=== PATIENT | female | born 1965 | race Caucasian/White ===

== ENCOUNTER 2018-03-28 12:58 | Emergency (ER) | payer MEDICAID, SELFPAY ==
[2018-03-28 13:07] VITALS: BP 139/98; PULSE 94; RESP 16; TEMP 36.7; O2SAT 96
--- NOTE | 2018-03-28 13:38 | ED.GENADUL ---
Disposition Clinical Impression: Dental abscess Disposition: HOME Condition: Stable Instructions: Dental Abscess (ED) Additional Instructions: Continue to take [id number] ibuprofen as needed for pain control. You may take 600 mg every 6 hours as needed for discomfort. If you begin having significant severe swelling to your face, difficulty breathing, and ability to swallow you should return immediately to the emergency department otherwise you need to follow-up with your dentist later this week for reassessment. Even if improving you need to take your antibiotics until all the way gone. You may also use a probiotic to help prevent diarrhea and you should take this 2 hours after your antibiotic once daily. Prescriptions: Clindamycin [Cleocin] 450 mg PO Q8H #60 cap Referrals: Evelyn Coto NP [Primary Care Provider] - 1 week (If you are unable to obtain an appointment with your dentist in the next week please follow-up with your primary care provider for recheck of your infection.) Medical Decision Making - Medical Decision Making Patient presenting to the emergency department for report of dental pain for the last 24 hours and some subjective face swelling. Patient does have significant erythema and mild swelling without fluctuance surrounding tooth #7 and partial fracture of tooth #8. Patient has poor dentition throughout entire oral cavity with multiple missing teeth and broken teeth. Patient placed upon clindamycin for concern of dental abscess due to amoxicillin allergy and informed to follow-up with dentist in the next week which she states she should be able to obtain this appointment or her primary care for recheck. Patient given clear instructions of worsening symptoms and need to return if these occur. After discussion of diagnosis and plan of care with patient patient agreed and stated no further needs, questions, or concerns at this time. Patient was offered a dental block but stated that she did not like needles and refused dental block at this time. Patient encouraged to take ibuprofen 600 mg every 6 hours as needed for pain control. History of Present Illness - General Chief complaint: DentalOral Stated complaint: DENTAL Time Seen by Provider: 03/28/18 13:31 Source: patient, RN notes reviewed Mode of arrival: ambulatory Limitations: no limitations - History of Present Illness Initial comments: Patient reports yesterday she began having significant and severe dental pain. Patient states that she has had dental problems in the past and has a fractured tooth. This tooth fractured a while ago but in the past 24 hours she has noted to start having significant pain surrounding that area. Patient states multiple missing teeth and cavities. She also states she noted some swelling and this had to go on antibiotics in the past. Onset/Timin -: days(s) Location: mouth Severity scale (1-10): 10 Quality: aching Consistency: constant Improves with: none Worsens with: none Associated Symptoms: denies other symptoms Treatments Prior to Arrival: NSAID - Related Data Methadone Liquid [Dolophine Liquid] 36 mg PO DAILY 03/21/13 Psyllium Husk (with Sugar) [Metamucil Powder] 3 gm PO See Instructions #3 bottle 06/10/17 Duloxetine HCl 40 mg PO DAILY #90 tab-cap 08/17/17 Hydrochlorothiazide [Hydrodiuril] 25 mg PO DAILY #90 tab-cap 08/17/17 Levothyroxine [Levothroid] 50 mcg PO DAILY #90 tab-cap 09/11/17 Lisinopril 10 mg PO DAILY #90 tab-cap 11/11/17 Omeprazole 20 mg PO BID #180 tab-cap 01/27/18 Atorvastatin Calcium 20 mg PO DAILY #90 tab-cap 02/17/18 Bupropion HCl [Wellbutrin Xl] 300 mg PO DAILY #90 tab-cap 02/17/18 Clindamycin [Cleocin] 450 mg PO Q8H #60 cap 03/28/18 Allergies Allergy/AdvReac Type Severity Reaction Status Date / Time amoxicillin Allergy Intermediate Hives Unverified 02/17/18 13:34 venlafaxine AdvReac Unknown nausea Unverified 02/17/18 13:34 09/12/09 Review of Systems Constitutional: denies: chills, fever ENT: dental pain. denies: throat pain Respiratory: denies: cough, shortness of breath, stridor, wheezing Gastrointestinal: denies: abdominal pain, nausea, vomiting Neurological: denies: headache Past Medical History - Past Medical History Medical history: asthma Surgical history: bilateral tubal ligation Psychiatric history: anxiety, depression - Social History Smoking status: current everyday smoker Alcohol use: none Drug use: none Living Situation: lives with family General Exam - General Limitations: no limitations General appearance: alert, other (Some discomfort is noted as patient is holding her mouth) - Head Head exam: Present: atraumatic - Eye Eye exam: Present: normal apperance - Expanded ENT Exam No standard instances Mouth exam: Present: tongue normal. Absent: drooling, trismus, muffled voice, tongue elevation Teeth exam: Present: dental caries (Multiple throughout oral cavity), fractured tooth # (Multiple fractured deep teeth due to poor dentition tooth of concern is #8), dental tenderness # (7 8), gingival enlargement (Surrounding tooth 7, 8) Throat exam: normal inspection - Neck Neck exam: Present: full ROM. Absent: lymphadenopathy - Respiratory Respiratory exam: Present: normal lung sounds bilaterally. Absent: respiratory distress, wheezes, rales, rhonchi, stridor - Cardiovascular Cardiovascular Exam: Present: regular rate, normal rhythm, normal heart sounds. Absent: tachycardia, systolic murmur, diastolic murmur, rubs, clicks - Neurological Exam Neurological exam: Present: alert, oriented X3, normal gait. Absent: altered - Skin Skin exam: Present: warm, dry, normal color Course Vital Signs - 24 hr 03/28/18 13:07 Temperature 36.7 C Pulse 94 H Respiratory 16 Rate Blood Pressure 139/98 Pulse Oximetry 96
[2018-03-28] MEDS: Clindamycin 150 MG CAP 450 MG PO (13:43)
== END 2018-03-28 13:55 | disposition home or self-care (01) ==
PROVIDERS: Emergency Provider Emergency Medicine; PCP Nurse Practitioner Family
DX: K04.7 Periapical abscess without sinus (principal)
CPT/HCPCS: 99283

== ENCOUNTER 2018-05-26 15:02 | Outpatient (REF) | payer MEDICAID, SELFPAY ==
--- NOTE | 2018-05-26 14:00 | PAPFT_PTH ---
PATIENT: Zoë Garcia LOC: [facility] U#:[id number] AGE/SX: 53/F ROOM: RE05/26/[address]: Evelyn Coto APRN : 1965 BED: DIS: 05/26/2018 SPEC #: [id number] RECD: 05/27/18 13:11 STATUS: IKE REQ #: [id number] SAMARA: 05/26/18 14:[address]: Evelyn Coto DEPT: [facility] Cytology RECD BY: Deyanira Prabhakar Tissues: 1 - CX/ENDOCX FOR PAP SMEARS Procedures: PAP THIN PREP/UVM Screening HPV DNA PROBE Comments: [id number] (CHLAMYDIA/GC)
[2018-05-28 14:18] LABS: Chlamydia Result Negative; GC Result Negative; Specimen Description SEE COMMENTS
== END 2018-05-26 15:22 ==
LOC: LBN 15:02
PROVIDERS: PCP Nurse Practitioner Family; Visit Provider Nurse Practitioner Family
DX: Z12.4 Encounter for screening for malignant neoplasm of cervix (principal); Z11.51 Encounter for screening for human papillomavirus (HPV)
CPT/HCPCS: 87491; 87591; 88142; 87624

== ENCOUNTER 2018-06-07 08:40 | Outpatient (CLI) | payer MEDICAID, SELFPAY ==
[2018-06-07 10:23] LABS: Anion Gap 8.4 mmol/L (3-11); BUN 11 mg/dL (7-18); CO2 31.6 mmol/L (21.0-32.0); CREATININE 0.84 mg/dL (0.55-1.02); Calcium 9.1 mg/dL (8.5-10.1); Chloride 98 mmol/L (98-107); Glucose 172 mg/dL (70-100); Potassium 3.8 mmol/L (3.5-5.1); Sodium 138 mmol/L (136-145)
[2018-06-07 10:37] LABS: TSH (W/Ref FT4) 1.02 uIU/mL (0.358-3.74)
[2018-06-08 11:09] LABS: Hepatitis C Ab w Rflx HCV PCR Negative (NEGAT)
== END 2018-06-07 09:00 ==
PROVIDERS: PCP Nurse Practitioner Family; Visit Provider Nurse Practitioner Family
DX: Z11.59 Encounter for screening for other viral diseases (principal); E03.9 Hypothyroidism, unspecified; N28.9 Disorder of kidney and ureter, unspecified
CPT/HCPCS: 36415; 80048; 86803; 84443

== ENCOUNTER 2018-07-06 09:57 | Emergency (ER) | payer MEDICAID, SELFPAY ==
[2018-07-06] VITALS (15 sets, daily range): BP systolic 124–136; BP diastolic 67–84; PULSE 78–96; RESP 10–19; TEMP 36.5; O2SAT 93–99
--- NOTE | 2018-07-06 10:14 | W.ED.GENAD ---
Discharge Plan Disposition Patient Disposition: HOME Discharge Details Chief Complaint: Palpitatns Clinical Impression: Heart palpitations Primary Care Provider: Evelyn Coto ED Provider: Bryn Peña Home Meds and New Rx's Prescriptions: Continue hydrochlorothiazide 25 mg tablet 25 mg PO DAILY Qty: 90 RF: 3 varicella-zoster [id number]-AS01B (PF) [Shingrix (PF)] 50 mcg/0.5 mL suspension for reconstitution 50 mcg IM .COMPLEX Qty: 1 RF: 1 psyllium husk (with sugar) [Metamucil (with sugar)] 822 GM powder 3 gm PO See Instructions Qty: 3 RF: 3 levothyroxine 50 MCG tablet 50 mcg PO DAILY Qty: 90 RF: 3 lisinopril 10 MG tablet 10 mg PO DAILY Qty: 90 RF: 3 omeprazole 20 MG capsule,delayed release(DR/EC) 20 mg PO BID Qty: 180 RF: 3 Atorvastatin Calcium 20 MG tablet 20 mg PO DAILY Qty: 90 RF: 3 bupropion HCl [Wellbutrin XL] 300 MG tablet extended release 24 hr 300 mg PO DAILY Qty: 90 RF: 3 methadone 10 MG/ML concentrate 26 mg PO DAILY RF: 0 No Action duloxetine 40 mg capsule,delayed release(DR/EC) 40 mg PO DAILY Qty: 90 RF: 3 Discharge Instructions Instructions: Palpitations (ED) Additional Instructions: Please keep heart monitor (zio patch) on for 14 days and return as directed. Please contact your primary care physician to arrange follow-up. Return to the ER for any worsening or new concerning symptoms. Referrals: Evelyn Coto NP [Primary Care Provider] - Discharge Data Discharge Date/Time-TO BE ENTERED AT DEPARTURE: 07/06/18 12:12 Medical Decision Making 53-year-old female sent from primary care physician's office with concern for bradycardia, palpitations over the past 3 weeks with associated dizziness. Patient is hemodynamically stable here and without complaint at this time. ECG reviewed and interpreted by me: Sinus rhythm 91 bpm with frequent PVCs in a trigeminy, no STEMI. Patient does note that she is having palpitations at time of ECG. I suspect the bradycardia noted in the clinic was related to nonconducted PVCs. She has not had any bradycardia here on monitor. Screening labs were performed and no electrolyte abnormalities. TSH is normal. She is taking her levothyroxine as prescribed. Plan at this time is to have the patient follow-up with her primary care physician. I will place a CO patch hall monitor for home use. I spoke with cardiology on-call Dr. Morgan who is in agreement with the plan. Disposition decision was made weighing the risks and benefits of hospitalization versus outpatient treatment, the risk for further decompensation, and the patient's wishes. The patient was stable and requested discharge. Prior to discharge, my usual and customary return precautions were reviewed with the patient - this included follow-up instructions and reason to return to the emergency department if condition worsens, does not improve as expected, or other new concerns arise. HPI General Date/Time Provider Initiated Documentation: 07/06/18 10:14. Limitations to Documentation: no limitations. Information obtained by: patient. HPI Narrative: 53-year-old female sent from primary care physician's office with concern for bradycardia. Patient notes palpitations over the past 3 weeks with associated dizziness. Symptoms mild. No modifiers. No associated chest pain. No syncope. Related Data Home Medications Medication Instructions Recorded Confirmed methadone 26 mg PO DAILY 03/21/13 07/06/18 psyllium husk (with sugar) 3 gm PO See Instructions #3 bottle 06/10/17 07/06/18 [Metamucil (with sugar)] levothyroxine 50 mcg PO DAILY #90 tab-cap 09/11/17 07/06/18 lisinopril 10 mg PO DAILY #90 tab-cap 11/11/17 07/06/18 omeprazole 20 mg PO BID #180 tab-cap 01/27/18 07/06/18 bupropion HCl [Wellbutrin XL] 300 mg PO DAILY #90 tab-cap 02/17/18 07/06/18 hydrochlorothiazide 25 mg tablet 25 mg PO DAILY #90 tab-cap 05/26/18 07/06/18 varicella-zoster glycoE [id number]-AS01B 50 mcg IM .COMPLEX #1 each 05/26/18 07/06/18 adj(PF) 50 mcg/0.5 mL IM susp, kit duloxetine 40 mg capsule,delayed 40 mg PO DAILY #90 tab-cap 07/08/18 release Previous Rx's Medication Instructions Recorded psyllium husk (with sugar) 3 gm PO See Instructions #3 bottle 06/10/17 [Metamucil (with sugar)] levothyroxine 50 mcg PO DAILY #90 tab-cap 09/11/17 lisinopril 10 mg PO DAILY #90 tab-cap 11/11/17 omeprazole 20 mg PO BID #180 tab-cap 01/27/18 bupropion HCl [Wellbutrin XL] 300 mg PO DAILY #90 tab-cap 02/17/18 hydrochlorothiazide 25 mg tablet 25 mg PO DAILY #90 tab-cap 05/26/18 varicella-zoster glycoE [id number]-AS01B 50 mcg IM .COMPLEX #1 each 05/26/18 adj(PF) 50 mcg/0.5 mL IM susp, kit duloxetine 40 mg capsule,delayed 40 mg PO DAILY #90 tab-cap 07/08/18 release Allergies Allergy/AdvReac Type Severity Reaction Status Date / Time amoxicillin Allergy Intermediate Hives Unverified 07/06/18 10:06 venlafaxine AdvReac Unknown nausea Unverified 07/06/18 10:06 09/12/09 General Stated Complaint: Palpitatns HONG: 2 Review of Systems Review of Systems All systems reviewed & are unremarkable except as noted in HPI and below PFSH Leiomyoma of uterus, unspecified (Chronic) Upper airway resistance syndrome (Chronic 02/08/15) Tobacco use disorder (Chronic 02/08/15) Substance use disorder (Chronic) Periodic limb movement disorder (Chronic 09/07/15) Menorrhagia with regular cycle (Chronic 11/08/15) Major depressive disorder, recurrent (Chronic 06/03/17) IFG (impaired fasting glucose) (Chronic 02/16/18) Hypothyroidism, unspecified (Chronic 06/02/17) Hyperlipidemia, unspecified (Chronic 02/08/15) History of nephrolithiasis (Inactive 02/08/15) Gastroesophageal reflux disease (Chronic 06/10/17) Fatigue (Chronic 02/08/15) Essential hypertension (Chronic 08/17/17) Asthma (Chronic 02/08/15) Anxiety and depression Asthma HLD (hyperlipidemia) HTN (hypertension) History of substance abuse Hypothyroidism IFG (impaired fasting glucose) Kidney stones Tobacco use disorder Family History Mother Breast cancer Father Diabetes Mental disorder Grandfather Neoplasm Grandmother Diabetes Alcohol abuse Heart disease Sister Neoplasm Lung cancer Ligation of fallopian tube (08/25/12) Family History Mother Breast cancer Father Diabetes Mental disorder Grandfather Neoplasm Grandmother Diabetes Alcohol abuse Heart disease Sister Neoplasm Lung cancer Medical History Leiomyoma of uterus, unspecified (Chronic) Upper airway resistance syndrome (Chronic 02/08/15) Tobacco use disorder (Chronic 02/08/15) Substance use disorder (Chronic) Periodic limb movement disorder (Chronic 09/07/15) Menorrhagia with regular cycle (Chronic 11/08/15) Major depressive disorder, recurrent (Chronic 06/03/17) IFG (impaired fasting glucose) (Chronic 02/16/18) Hypothyroidism, unspecified (Chronic 06/02/17) Hyperlipidemia, unspecified (Chronic 02/08/15) History of nephrolithiasis (Inactive 02/08/15) Gastroesophageal reflux disease (Chronic 06/10/17) Fatigue (Chronic 02/08/15) Essential hypertension (Chronic 08/17/17) Asthma (Chronic 02/08/15) Anxiety and depression Asthma HLD (hyperlipidemia) HTN (hypertension) History of substance abuse Hypothyroidism IFG (impaired fasting glucose) Kidney stones Tobacco use disorder Social History Smoking/Tobacco Use Status: Current every day Surgical History Ligation of fallopian tube (08/25/12) Social History Smoking/Tobacco Use Status: Current every day Exam Const General: cooperative and no acute distress [facility] Head: normocephalic and atraumatic Mouth: moist mucous membranes Eyes Conjunctivae: normal conjunctivae Sclera: normal sclerae Neck Neck: trachea midline and supple Resp Auscultation: clear to auscultation bilaterally, no rales, no rhonchi and no wheezes Cardio Jugular venous pressure: no JVD Rate: regular rate and not tachycardic Rhythm: regular rhythm GI Palpation: soft, not firm, no guarding, no masses, not rigid and nontender Skin General skin exam: no rashes or lesions noted Neuro General: alert, awake, oriented x3 and tone normal Extrem General: no calf tenderness bilaterally and no edema Psych Appearance: grossly normal Mental Status: mental status grossly normal Speech and Movement: speech and movement normal Course Vital Signs Temperature 36.5 C 07/06/18 10:02 Pulse 94 H 07/06/18 10:02 Respiratory Rate 17 07/06/18 10:02 Temperature 36.5 C 07/06/18 10:02 Temperature Source Skin 07/06/18 10:02 Pulse 94 H 07/06/18 10:02 Respiratory Rate 17 07/06/18 10:02 Respiratory Effort Non-Labored 07/06/18 10:02 Pain Level 0 07/06/18 10:02
[2018-07-06 10:36] LABS: Abs Immature Grans 0.01 k/cumm (0.0-0.09); Absolute Basophil Count 0.05 k/cumm (0.0-0.2); Absolute Eosinophil Count 0.22 k/cumm (0.0-0.7); Absolute Lymphocyte Count 2.08 k/cumm (1.2-3.4); Absolute Monocyte Count 0.56 k/cumm (0.11-0.7); Absolute Neutrophil Count 4.52 k/cumm (1.2-6.7); Basophils % 0.7; HCT 47.8 % (36.0-46.0); HGB 15.8 g/dL (12.0-15.5); Immature Grans % 0.1; Mean Corp. HGB Concentration 33.1 g/dL (32.0-36.0); Mean Corpuscular Hemoglobin 29.4 pg (27.0-33.0); Mean Corpuscular Volume 88.8 fL (80-95); Mean Platelet Volume 8.5 fL (8.0-11.0); Monocytes % 7.5; Neutrophils % 60.7; Platelet Count 268 x1000/uL (130-400); RBC 5.38 m/cumm (4.00-5.20); RBC Distribution Width 13.3 % (11.7-14.6); White Blood Cell Count 7.44 k/cumm (4.4-10.8)
[2018-07-06 10:54] LABS: ALT 27 U/L (12-78); AST 19 U/L (15-37); Albumin 3.4 g/dL (3.4-5.0); Alkaline Phosphatase 92 U/L (46-116); Anion Gap 8.1 mmol/L (3-11); BUN 11 mg/dL (7-18); Bilirubin, Total 0.3 mg/dL (0.2-1.0); CO2 31.9 mmol/L (21.0-32.0); CREATININE 0.94 mg/dL (0.55-1.02); Calcium 9.1 mg/dL (8.5-10.1); Chloride 100 mmol/L (98-107); Glucose 121 mg/dL (70-100); Potassium 3.9 mmol/L (3.5-5.1); Sodium 140 mmol/L (136-145); Total Protein 7.6 g/dL (6.4-8.2); Troponin I < 0.02 ng/mL (0.00-0.06)
[2018-07-06 10:59] LABS: TSH (W/Ref FT4) 1.41 uIU/mL (0.358-3.74)
--- NOTE | 2018-07-06 11:39 | ED.GENADUL_ITS ---
Discharge Plan Disposition Patient Disposition: HOME Discharge Details Chief Complaint: Palpitatns Clinical Impression: Heart palpitations Primary Care Provider: Evelyn Coto ED Provider: Bryn Peña Home Meds and New Rx's Prescriptions: Continue hydrochlorothiazide 25 mg tablet 25 mg PO DAILY Qty: 90 RF: 3 varicella-zoster gE-AS01B (PF) [Shingrix (PF)] 50 mcg/0.5 mL suspension for reconstitution 50 mcg IM .COMPLEX Qty: 1 RF: 1 psyllium husk (with sugar) [Metamucil (with sugar)] 822 GM powder 3 gm PO See Instructions Qty: 3 RF: 3 levothyroxine 50 MCG tablet 50 mcg PO DAILY Qty: 90 RF: 3 lisinopril 10 MG tablet 10 mg PO DAILY Qty: 90 RF: 3 omeprazole 20 MG capsule,delayed release(DR/EC) 20 mg PO BID Qty: 180 RF: 3 Atorvastatin Calcium 20 MG tablet 20 mg PO DAILY Qty: 90 RF: 3 bupropion HCl [Wellbutrin XL] 300 MG tablet extended release 24 hr 300 mg PO DAILY Qty: 90 RF: 3 methadone 10 MG/ML concentrate 26 mg PO DAILY RF: 0 No Action duloxetine 40 mg capsule,delayed release(DR/EC) 40 mg PO DAILY Qty: 90 RF: 3 Discharge Instructions Instructions: Palpitations (ED) Additional Instructions: Please keep heart monitor (zio patch) on for 14 days and return as directed. Please contact your primary care physician to arrange follow-up. Return to the ER for any worsening or new concerning symptoms. Referrals: Evelyn Coto NP [Primary Care Provider] - Discharge Data Discharge Date/Time-TO BE ENTERED AT DEPARTURE: 07/06/18 12:12 Medical Decision Making 53-year-old female sent from primary care physician's office with concern for bradycardia, palpitations over the past 3 weeks with associated dizziness. Patient is hemodynamically stable here and without complaint at this time. ECG reviewed and interpreted by me: Sinus rhythm 91 bpm with frequent PVCs in a trigeminy, no STEMI. Patient does note that she is having palpitations at time of ECG. I suspect the bradycardia noted in the clinic was related to nonconducted PVCs. She has not had any bradycardia here on monitor. Screening labs were performed and no electrolyte abnormalities. TSH is normal. She is taking her levothyroxine as prescribed. Plan at this time is to have the patient follow-up with her primary care physician. I will place a CO patch vehicle monitor technician for home use. I spoke with cardiology on-call Dr. Morgan who is in agreement with the plan. Disposition decision was made weighing the risks and benefits of hospitalization versus outpatient treatment, the risk for further decompensation , and the patient's wishes. The patient was stable and requested discharge. Prior to discharge, my usual and customary return precautions were reviewed with the patient - this included follow-up instructions and reason to return to the emergency department if condition worsens, does not improve as expected, or other new concerns arise. HPI General Date/Time Provider Initiated Documentation: 07/06/18 10:14 . Limitations to Documentation: no limitations . Information obtained by: patient . HPI Narrative: 53-year-old female sent from primary care physician's office with concern for bradycardia. Patient notes palpitations over the past 3 weeks with associated dizziness. Symptoms mild. No modifiers. No associated chest pain. No syncope. Related Data Home Medications Medication Instructions Recorded Confirmed methadone 26 mg PO DAILY 03/21/13 07/06/18 psyllium husk (with sugar) 3 gm PO See Instructions #3 bottle 06/10/17 07/06/18 [Metamucil (with sugar)] levothyroxine 50 mcg PO DAILY #90 tab-cap 09/11/17 07/06/18 lisinopril 10 mg PO DAILY #90 tab-cap 11/11/17 07/06/18 omeprazole 20 mg PO BID #180 tab-cap 01/27/18 07/06/18 bupropion HCl [Wellbutrin XL] 300 mg PO DAILY #90 tab-cap 02/17/18 07/06/18 hydrochlorothiazide 25 mg tablet 25 mg PO DAILY #90 tab-cap 05/26/18 07/06/18 varicella-zoster glycoE [id number]-AS01B 50 mcg IM .COMPLEX #1 each 05/26/18 07/06/18 adj(PF) 50 mcg/0.5 mL IM susp, kit duloxetine 40 mg capsule,delayed 40 mg PO DAILY #90 tab-cap 07/08/18 release Previous Rx's Medication Instructions Recorded psyllium husk (with sugar) 3 gm PO See Instructions #3 bottle 06/10/17 [Metamucil (with sugar)] levothyroxine 50 mcg PO DAILY #90 tab-cap 09/11/17 lisinopril 10 mg PO DAILY #90 tab-cap 11/11/17 omeprazole 20 mg PO BID #180 tab-cap 01/27/18 bupropion HCl [Wellbutrin XL] 300 mg PO DAILY #90 tab-cap 02/17/18 hydrochlorothiazide 25 mg tablet 25 mg PO DAILY #90 tab-cap 05/26/18 varicella-zoster glycoE [id number]-AS01B 50 mcg IM .COMPLEX #1 each 05/26/18 adj(PF) 50 mcg/0.5 mL IM susp, kit duloxetine 40 mg capsule,delayed 40 mg PO DAILY #90 tab-cap 07/08/18 release Allergies Allergy/AdvReac Type Severity Reaction Status Date / Time amoxicillin Allergy Intermediate Hives Unverified 07/06/18 10:06 venlafaxine AdvReac Unknown nausea Unverified 07/06/18 10:06 09/12/09 General Stated Complaint: Palpitatns HONG: 2 Review of Systems Review of Systems All systems reviewed & are unremarkable except as noted in HPI and below PFSH Leiomyoma of uterus, unspecified (Chronic) Upper airway resistance syndrome (Chronic 02/08/15) Tobacco use disorder (Chronic 02/08/15) Substance use disorder (Chronic) Periodic limb movement disorder (Chronic 09/07/15) Menorrhagia with regular cycle (Chronic 11/08/15) Major depressive disorder, recurrent (Chronic 06/03/17) IFG (impaired fasting glucose) (Chronic 02/16/18) Hypothyroidism, unspecified (Chronic 06/02/17) Hyperlipidemia, unspecified (Chronic 02/08/15) History of nephrolithiasis (Inactive 02/08/15) Gastroesophageal reflux disease (Chronic 06/10/17) Fatigue (Chronic 02/08/15) Essential hypertension (Chronic 08/17/17) Asthma (Chronic 02/08/15) Anxiety and depression Asthma HLD (hyperlipidemia) HTN (hypertension) History of substance abuse Hypothyroidism IFG (impaired fasting glucose) Kidney stones Tobacco use disorder Family History Mother Breast cancer Father Diabetes Mental disorder Grandfather Neoplasm Grandmother Diabetes Alcohol abuse Heart disease Sister Neoplasm Lung cancer Ligation of fallopian tube (08/25/12) Family History Mother Breast cancer Father Diabetes Mental disorder Grandfather Neoplasm Grandmother Diabetes Alcohol abuse Heart disease Sister Neoplasm Lung cancer Medical History Leiomyoma of uterus, unspecified (Chronic) Upper airway resistance syndrome (Chronic 02/08/15) Tobacco use disorder (Chronic 02/08/15) Substance use disorder (Chronic) Periodic limb movement disorder (Chronic 09/07/15) Menorrhagia with regular cycle (Chronic 11/08/15) Major depressive disorder, recurrent (Chronic 06/03/17) IFG (impaired fasting glucose) (Chronic 02/16/18) Hypothyroidism, unspecified (Chronic 06/02/17) Hyperlipidemia, unspecified (Chronic 02/08/15) History of nephrolithiasis (Inactive 02/08/15) Gastroesophageal reflux disease (Chronic 06/10/17) Fatigue (Chronic 02/08/15) Essential hypertension (Chronic 08/17/17) Asthma (Chronic 02/08/15) Anxiety and depression Asthma HLD (hyperlipidemia) HTN (hypertension) History of substance abuse Hypothyroidism IFG (impaired fasting glucose) Kidney stones Tobacco use disorder Social History Smoking/Tobacco Use Status: Current every day Surgical History Ligation of fallopian tube (08/25/12) Social History Smoking/Tobacco Use Status: Current every day Exam Const General: cooperative and no acute distress [facility] Head: normocephalic and atraumatic Mouth: moist mucous membranes Eyes Conjunctivae: normal conjunctivae Sclera: normal sclerae Neck Neck: trachea midline and supple Resp Auscultation: clear to auscultation bilaterally, no rales, no rhonchi and no wheezes Cardio Jugular venous pressure: no JVD Rate: regular rate and not tachycardic Rhythm: regular rhythm GI Palpation: soft, not firm, no guarding, no masses, not rigid and nontender Skin General skin exam: no rashes or lesions noted Neuro General: alert, awake, oriented x3 and tone normal Extrem General: no calf tenderness bilaterally and no edema Psych Appearance: grossly normal Mental Status: mental status grossly normal Speech and Movement: speech and movement normal Course Vital Signs Temperature 36.5 C 07/06/18 10:02 Pulse 94 H 07/06/18 10:02 Respiratory Rate 17 07/06/18 10:02 Temperature 36.5 C 07/06/18 10:02 Temperature Source Skin 07/06/18 10:02 Pulse 94 H 07/06/18 10:02 Respiratory Rate 17 07/06/18 10:02 Respiratory Effort Non-Labored 07/06/18 10:02 Pain Level 0 07/06/18 10:02
--- NOTE | 2018-07-08 09:46 | W.ED.FU ---
I called to check on Zoë. She reports ongoing intermittent episodes of chest feeling funny with associated dizziness. No CP. She is wearing the heart monitor as prescribed. She is having to use the tape RT gave her to keep it on, while working. She will f/u with PCP, or walk in clinic once she is done with the monitor.
--- NOTE | 2018-07-26 17:12 | ZIOP_ITS ---
DATE OF DICTATION: July 26, 2018. MONITOR IN PLACE: 12 days 20 hours, July 06-July 19, 2018. Baseline rhythm sinus. Rare single PAC's. Four bursts of supraventricular tachycardia, longest 7-beat duration, fastest 15 2 bpm. Occasional single premature ventricular contractions, rare couplets. No ventricular tachycardia. No bradycardia/block. 16 triggered events occurring during sinus rhythm, +/- single premature ventricular contractions at 9 2-116 bpm. 9 symptomatic episodes. Lightheadedness, shortness of breath, fluttering and racing, skipped irregu lar beats, dizziness, all described during sinus rhythm +/- single premature ventricular contractions , 99-121 bpm. Average heart rate sinus 99 bpm, range 68 -148 bpm.
== END 2018-07-06 12:12 | disposition home or self-care (01) ==
PROVIDERS: Emergency Provider Student in an Organized Health Care Education/Training Program; PCP Nurse Practitioner Family
DX: R00.1 Bradycardia, unspecified (principal); I10 Essential (primary) hypertension
CPT/HCPCS: 36415; 80053; 93005; 93225; 99284; 83735; 84443; 84484; 85025; 93010

== ENCOUNTER 2018-08-27 13:54 | Emergency (ER) | payer MEDICAID, SELFPAY ==
[2018-08-27 14:20] VITALS: BP 141/81; PULSE 76; RESP 16; TEMP 36.5; O2SAT 97
[2018-08-27] MEDS: Acetaminophen 500 MG TAB 1000 MG PO (14:38)
[2018-08-27] MEDS: Benzocaine 20% Gel 30 GM JAR MM (14:39)
--- NOTE | 2018-08-27 15:33 | W.ED.GENAD ---
Discharge Plan Disposition Patient Disposition: HOME Condition: Stable Discharge Details Chief Complaint: DentalOral Clinical Impression: Dental abscess Primary Care Provider: Evelyn Coto ED Provider: Ryland Way Home Meds and New Rx's Prescriptions: New clindamycin HCl [Cleocin HCl] 150 mg capsule 450 mg PO TID 7 Days Qty: 63 RF: 0 Continued Shingrix (PF) 50 mcg/0.5 mL suspension for reconstitution 50 mcg IM .COMPLEX Qty: 1 RF: 1 Metamucil (with sugar) 822 GM powder 3 gm PO See Instructions Qty: 3 RF: 3 levothyroxine 50 MCG tablet 50 mcg PO DAILY Qty: 90 RF: 3 lisinopril 10 MG tablet 10 mg PO DAILY Qty: 90 RF: 3 omeprazole 20 MG capsule,delayed release(DR/EC) 20 mg PO BID Qty: 180 RF: 3 Atorvastatin Calcium 20 MG tablet 20 mg PO DAILY Qty: 90 RF: 3 bupropion HCl [Wellbutrin XL] 300 MG tablet extended release 24 hr 300 mg PO DAILY Qty: 90 RF: 3 duloxetine 40 mg capsule,delayed release(DR/EC) 40 mg PO DAILY Qty: 90 RF: 3 hydrochlorothiazide 25 mg tablet 25 mg PO DAILY Qty: 90 RF: 3 methadone 10 mg/mL concentrate 24 mg PO DAILY RF: 0 Discharge Instructions Instructions: Dental Abscess (ED) Additional Instructions: Please take antibiotic as prescribed and until fully gone. Keep your appointment with your dentist for follow-up on Thursday. Return to the emergency department for any new or significant worsening of symptoms. For pain control you may take 600 mg of ibuprofen along with 1000 mg of acetaminophen every 6 hours as needed for discomfort. To help with sleep you may take 1-2 tablets of Benadryl approximately 30 minutes before bedtime. Referrals: Evelyn Coto, MICKEY [Primary Care Provider] - (Keep your follow-up with your dentist as scheduled for next Thursday. If unable to keep that feel free to follow-up with your primary care provider for reassessment) Discharge Data Discharge Date/Time-TO BE ENTERED AT DEPARTURE: 08/27/18 15:58 Medical Decision Making Patient presenting to the emergency department chief complaint of dental pain. Patient states that patient has couple days she has had significant pain and discomfort to tooth #7 that seems to have come down more and hit her lower teeth every time she bites causing severe pain. Patient states throbbing type pain that is persistent. She has been taking NSAIDs with minimal relief. Patient does have follow-up appointment with dentist already scheduled for Thursday but due to worsening discomfort she was concerned of infection which she has had in the past. Physical exam does show partial fracture of tooth #8, overall poor dentition, erythema surrounding the base of tooth #7 and 8 with no palpable fluctuance induration or abscess. Minimal external swelling is noted. No signs of Patrick's angina, patient nontoxic, no neurological symptoms or other physical exam findings noted. Patient refused dental block at this time. manager staffing initiated pain protocol and gave patient acetaminophen and benzocaine topical which did provide patient with some relief while waiting for assessment. Patient was placed up on clindamycin due to penicillin type allergy which she states has helped in the past with no adverse diarrhea or GI upset. Patient encouraged to return for new or worsening symptoms otherwise keep her appointment with her dentist. HPI General Mode of arrival: ambulatory. Date/Time Provider Initiated Documentation: 08/27/18 14:20. Limitations to Documentation: no limitations. Information obtained by: patient. History of Present Illness 53 year old F presents to the emergency department with the chief complaint of Dental pain, described as severe and similar to prior episodes, with intensity rated at 10. Quality is described as sharp, and is localized to the mouth. Patient started experiencing this day(s) (2) and it has been constant. No relieving factors improve symptom(s), Patient notes no other symptoms.. Patient did receive the following treatments prior to arrival, NSAID Related Data Home Medications Medication Instructions Recorded Confirmed Metamucil (with sugar) 3 gm PO See Instructions #3 bottle 06/10/17 08/27/18 levothyroxine 50 mcg PO DAILY #90 tab-cap 09/11/17 08/27/18 lisinopril 10 mg PO DAILY #90 tab-cap 11/11/17 08/27/18 omeprazole 20 mg PO BID #180 tab-cap 01/27/18 08/27/18 bupropion HCl [Wellbutrin XL] 300 mg PO DAILY #90 tab-cap 02/17/18 08/27/18 varicella-zoster glycoE [id number] 50 mcg IM .COMPLEX #1 each 05/26/18 08/16/18 adj(PF) 50 mcg/0.5 mL IM susp, kit duloxetine 40 mg capsule,delayed 40 mg PO DAILY #90 tab-cap 07/08/18 08/27/18 release methadone 10 mg/mL oral concentrate 24 mg PO DAILY ml 08/16/18 08/27/18 hydrochlorothiazide 25 mg tablet 25 mg PO DAILY #90 tab-cap 08/25/18 08/27/18 clindamycin HCl [Cleocin HCl] 450 mg PO TID 7 Days #63 cap 08/27/18 Previous Rx's Medication Instructions Recorded Metamucil (with sugar) 3 gm PO See Instructions #3 bottle 06/10/17 levothyroxine 50 mcg PO DAILY #90 tab-cap 09/11/17 lisinopril 10 mg PO DAILY #90 tab-cap 11/11/17 omeprazole 20 mg PO BID #180 tab-cap 01/27/18 bupropion HCl [Wellbutrin XL] 300 mg PO DAILY #90 tab-cap 02/17/18 varicella-zoster glycoE [id number] 50 mcg IM .COMPLEX #1 each 05/26/18 adj(PF) 50 mcg/0.5 mL IM susp, kit duloxetine 40 mg capsule,delayed 40 mg PO DAILY #90 tab-cap 07/08/18 release hydrochlorothiazide 25 mg tablet 25 mg PO DAILY #90 tab-cap 08/25/18 clindamycin HCl [Cleocin HCl] 450 mg PO TID 7 Days #63 cap 08/27/18 Allergies Allergy/AdvReac Type Severity Reaction Status Date / Time amoxicillin Allergy Intermediate Hives Unverified 08/27/18 14:25 venlafaxine AdvReac Unknown nausea Unverified 08/27/18 14:25 09/12/09 General Stated Complaint: DentalOral HONG: 4 Review of Systems Constitutional Denies chills and Denies fever(s) ENT Reports as per HPI, Denies change in voice, Reports dental pain, Denies dysphagia, Denies throat swelling and Denies tongue swelling Cardiovascular Denies chest pain and Denies dyspnea Respiratory Denies dyspnea Gastrointestinal Denies dysphagia Integumentary/Breasts Denies rash Allergic/Immunologic Denies throat swelling and Denies tongue swelling [facility] Medical History Leiomyoma of uterus, unspecified (Chronic) Upper airway resistance syndrome (Chronic 02/08/15) Tobacco use disorder (Chronic 02/08/15) Substance use disorder (Chronic) Periodic limb movement disorder (Chronic 09/07/15) Menorrhagia with regular cycle (Chronic 11/08/15) Major depressive disorder, recurrent (Chronic 06/03/17) IFG (impaired fasting glucose) (Chronic 02/16/18) Hypothyroidism, unspecified (Chronic 06/02/17) Hyperlipidemia, unspecified (Chronic 02/08/15) History of nephrolithiasis (Inactive 02/08/15) Gastroesophageal reflux disease (Chronic 06/10/17) Fatigue (Chronic 02/08/15) Essential hypertension (Chronic 08/17/17) Asthma (Chronic 02/08/15) Anxiety and depression Asthma HLD (hyperlipidemia) HTN (hypertension) History of substance abuse Hypothyroidism IFG (impaired fasting glucose) Kidney stones Tobacco use disorder Surgical History Ligation of fallopian tube (08/25/12) Family History Mother Breast cancer Father Diabetes Mental disorder Grandfather Neoplasm Grandmother Diabetes Alcohol abuse Heart disease Sister Neoplasm Lung cancer Social History number of children: 2 current occupational status: employed current occupation: House cleaning pets and animals: No Hx Recent Travel: No Smoking/Tobacco Use Status: Current every day alcohol intake: former substance use type: does not use seatbelt use: always helmet use: Yes Exam Const General: cooperative Orientation: alert, awake and oriented x3 Limitations: mental status not altered [facility] Head: normal to inspection, normocephalic and atraumatic Ears: hearing grossly normal bilaterally, normal mastoids bilaterally and no periauricular adenopathy General nose exam: external nose normal Mouth: oropharynx normal, no drooling, no muffled voice, normal tongue and no trismus Teeth and gingiva: abnormal gingiva (Erythema surrounding tooth #7 and 8 along with tenderness to these teeth), caries, poor dentition and other (Partially fractured tooth 8 with erythema surrounding the base of the tooth) Throat: posterior oropharynx normal, tonsils normal and uvula midline Eyes General: appearance normal, both eyes and all related structures Pupils: PERRL Neck Neck: normal visual inspection, full ROM, no lymphadenopathy, no meningeal signs, trachea midline, supple, no anterior neck swelling and no midline deformity Resp Effort & Inspection: normal respiratory effort and able to speak in complete sentences Course Vital Signs Temperature 36.5 C 08/27/18 14:20 Pulse 76 08/27/18 14:20 Respiratory Rate 16 08/27/18 14:20 Blood Pressure 141/81 H 08/27/18 14:20 Pulse Oximetry 97 08/27/18 14:20 Temperature 36.5 C 08/27/18 14:20 Temperature Source Temporal Artery Scan 08/27/18 14:20 Pulse 76 08/27/18 14:20 Respiratory Rate 16 08/27/18 14:20 Respiratory Effort Non-Labored 08/27/18 14:24 Blood Pressure 141/81 H 08/27/18 14:20 Blood Pressure Position Sitting 08/27/18 14:20 Pulse Oximetry 97 08/27/18 14:20 Oxygen Delivery Method Room Air 08/27/18 14:20 Oxygen Flow Rate 0 08/27/18 14:20 Pain Level 10 08/27/18 14:38
--- NOTE | 2018-08-27 15:37 | ED.GENADUL_ITS ---
Discharge Plan Disposition Patient Disposition: HOME Condition: Stable Discharge Details Chief Complaint: DentalOral Clinical Impression: Dental abscess Primary Care Provider: Eevlyn Coto ED Provider: Ryland Way Home Meds and New Rx's Prescriptions: New clindamycin HCl [Cleocin HCl] 150 mg capsule 450 mg PO TID 7 Days Qty: 63 RF: 0 Continued Shingrix (PF) 50 mcg/0.5 mL suspension for reconstitution 50 mcg IM .COMPLEX Qty: 1 RF: 1 Metamucil (with sugar) 822 GM powder 3 gm PO See Instructions Qty: 3 RF: 3 levothyroxine 50 MCG tablet 50 mcg PO DAILY Qty: 90 RF: 3 lisinopril 10 MG tablet 10 mg PO DAILY Qty: 90 RF: 3 omeprazole 20 MG capsule,delayed release(DR/EC) 20 mg PO BID Qty: 180 RF: 3 Atorvastatin Calcium 20 MG tablet 20 mg PO DAILY Qty: 90 RF: 3 bupropion HCl [Wellbutrin XL] 300 MG tablet extended release 24 hr 300 mg PO DAILY Qty: 90 RF: 3 duloxetine 40 mg capsule,delayed release(DR/EC) 40 mg PO DAILY Qty: 90 RF: 3 hydrochlorothiazide 25 mg tablet 25 mg PO DAILY Qty: 90 RF: 3 methadone 10 mg/mL concentrate 24 mg PO DAILY RF: 0 Discharge Instructions Instructions: Dental Abscess (ED) Additional Instructions: Please take antibiotic as prescribed and until fully gone. Keep your appointment with your dentist for follow-up on Thursday. Return to the emergency department for any new or significant worsening of symptoms. For pain control you may take 600 mg of ibuprofen along with 1000 mg of acetaminophen every 6 hours as needed for discomfort. To help with sleep you may take 1-2 tablets of Benadryl approximately 30 minutes before bedtime. Referrals: Evelyn Coto, MICKEY [Primary Care Provider] - (Keep your follow-up with your dentist as scheduled for next Thursday. If unable to keep that feel free to follow-up with your primary care provider for reassessment) Discharge Data Discharge Date/Time-TO BE ENTERED AT DEPARTURE: 08/27/18 15:58 Medical Decision Making Patient presenting to the emergency department chief complaint of dental pain. Patient states that patient has couple days she has had significant pain and discomfort to tooth #7 that seems to have come down more and hit her lower teeth every time she bites causing severe pain. Patient states throbbing type pain that is persistent. She has been taking NSAIDs with minimal relief. Patient does have follow-up appointment with dentist already scheduled for Thursday but due to worsening discomfort she was concerned of infection which she has had in the past. Physical exam does show partial fracture of tooth #8, overall poor dentition, erythema surrounding the base of tooth #7 and 8 with no palpable fluctuance induration or abscess. Minimal external swelling is noted. No signs of Patrick's angina, patient nontoxic, no neurological symptoms or other physical exam findings noted. Patient refused dental block at this time. staff pharmacist initiated pain protocol and gave patient acetaminophen and benzocaine topical which did provide patient with some relief while waiting for assessment. Patient was placed up on clindamycin due to penicillin type allergy which she states has helped in the past with no adverse diarrhea or GI upset. Patient encouraged to return for new or worsening symptoms otherwise keep her appointment with her dentist. HPI General Mode of arrival: ambulatory . Date/Time Provider Initiated Documentation: 08/27/18 14:20 . Limitations to Documentation: no limitations . Information obtained by: patient . History of Present Illness 53 year old F presents to the emergency department with the chief complaint of Dental pain, described as severe and similar to prior episodes, with intensity rated at 10. Quality is described as sharp, and is localized to the mouth. Patient started experiencing this day(s) (2) and it has been constant. No relieving factors improve symptom(s), Patient notes no other symptoms.. Patient did receive the following treatments prior to arrival, NSAID Related Data Home Medications Medication Instructions Recorded Confirmed Metamucil (with sugar) 3 gm PO See Instructions #3 bottle 06/10/17 08/27/18 levothyroxine 50 mcg PO DAILY #90 tab-cap 09/11/17 08/27/18 lisinopril 10 mg PO DAILY #90 tab-cap 11/11/17 08/27/18 omeprazole 20 mg PO BID #180 tab-cap 01/27/18 08/27/18 bupropion HCl [Wellbutrin XL] 300 mg PO DAILY #90 tab-cap 02/17/18 08/27/18 varicella-zoster glycoE [id number]-AS01B 50 mcg IM .COMPLEX #1 each 05/26/18 08/16/18 adj(PF) 50 mcg/0.5 mL IM susp, kit duloxetine 40 mg capsule,delayed 40 mg PO DAILY #90 tab-cap 07/08/18 08/27/18 release methadone 10 mg/mL oral concentrate 24 mg PO DAILY ml 08/16/18 08/27/18 hydrochlorothiazide 25 mg tablet 25 mg PO DAILY #90 tab-cap 08/25/18 08/27/18 clindamycin HCl [Cleocin HCl] 450 mg PO TID 7 Days #63 cap 08/27/18 Previous Rx's Medication Instructions Recorded Metamucil (with sugar) 3 gm PO See Instructions #3 bottle 06/10/17 levothyroxine 50 mcg PO DAILY #90 tab-cap 09/11/17 lisinopril 10 mg PO DAILY #90 tab-cap 11/11/17 omeprazole 20 mg PO BID #180 tab-cap 01/27/18 bupropion HCl [Wellbutrin XL] 300 mg PO DAILY #90 tab-cap 02/17/18 varicella-zoster glycoE [id number]-AS01B 50 mcg IM .COMPLEX #1 each 05/26/18 adj(PF) 50 mcg/0.5 mL IM susp, kit duloxetine 40 mg capsule,delayed 40 mg PO DAILY #90 tab-cap 07/08/18 release hydrochlorothiazide 25 mg tablet 25 mg PO DAILY #90 tab-cap 08/25/18 clindamycin HCl [Cleocin HCl] 450 mg PO TID 7 Days #63 cap 08/27/18 Allergies Allergy/AdvReac Type Severity Reaction Status Date / Time amoxicillin Allergy Intermediate Hives Unverified 08/27/18 14:25 venlafaxine AdvReac Unknown nausea Unverified 08/27/18 14:25 09/12/09 General Stated Complaint: DentalOral HONG: 4 Review of Systems Constitutional Denies chills and Denies fever(s) ENT Reports as per HPI, Denies change in voice, Reports dental pain, Denies dysphagia, Denies throat swelling and Denies tongue swelling Cardiovascular Denies chest pain and Denies dyspnea Respiratory Denies dyspnea Gastrointestinal Denies dysphagia Integumentary/Breasts Denies rash Allergic/Immunologic Denies throat swelling and Denies tongue swelling [facility] Medical History Leiomyoma of uterus, unspecified (Chronic) Upper airway resistance syndrome (Chronic 02/08/15) Tobacco use disorder (Chronic 02/08/15) Substance use disorder (Chronic) Periodic limb movement disorder (Chronic 09/07/15) Menorrhagia with regular cycle (Chronic 11/08/15) Major depressive disorder, recurrent (Chronic 06/03/17) IFG (impaired fasting glucose) (Chronic 02/16/18) Hypothyroidism, unspecified (Chronic 06/02/17) Hyperlipidemia, unspecified (Chronic 02/08/15) History of nephrolithiasis (Inactive 02/08/15) Gastroesophageal reflux disease (Chronic 06/10/17) Fatigue (Chronic 02/08/15) Essential hypertension (Chronic 08/17/17) Asthma (Chronic 02/08/15) Anxiety and depression Asthma HLD (hyperlipidemia) HTN (hypertension) History of substance abuse Hypothyroidism IFG (impaired fasting glucose) Kidney stones Tobacco use disorder Surgical History Ligation of fallopian tube (08/25/12) Family History Mother Breast cancer Father Diabetes Mental disorder Grandfather Neoplasm Grandmother Diabetes Alcohol abuse Heart disease Sister Neoplasm Lung cancer Social History number of children: 2 current occupational status: employed current occupation: House cleaning pets and animals: No Hx Recent Travel: No Smoking/Tobacco Use Status: Current every day alcohol intake: former substance use type: does not use seatbelt use: always helmet use: Yes Exam Const General: cooperative Orientation: alert, awake and oriented x3 Limitations: mental status not altered [facility] Head: normal to inspection, normocephalic and atraumatic Ears: hearing grossly normal bilaterally, normal mastoids bilaterally and no periauricular adenopathy General nose exam: external nose normal Mouth: oropharynx normal, no drooling, no muffled voice, normal tongue and no trismus Teeth and gingiva: abnormal gingiva (Erythema surrounding tooth #7 and 8 along with tenderness to these teeth), caries, poor dentition and other (Partially fractured tooth 8 with erythema surrounding the base of the tooth) Throat: posterior oropharynx normal, tonsils normal and uvula midline Eyes General: appearance normal, both eyes and all related structures Pupils: PERRL Neck Neck: normal visual inspection, full ROM, no lymphadenopathy, no meningeal signs, trachea midline, supple, no anterior neck swelling and no midline deformity Resp Effort & Inspection: normal respiratory effort and able to speak in complete sentences Course Vital Signs Temperature 36.5 C 08/27/18 14:20 Pulse 76 08/27/18 14:20 Respiratory Rate 16 08/27/18 14:20 Blood Pressure 141/81 H 08/27/18 14:20 Pulse Oximetry 97 08/27/18 14:20 Temperature 36.5 C 08/27/18 14:20 Temperature Source Temporal Artery Scan 08/27/18 14:20 Pulse 76 08/27/18 14:20 Respiratory Rate 16 08/27/18 14:20 Respiratory Effort Non-Labored 08/27/18 14:24 Blood Pressure 141/81 H 08/27/18 14:20 Blood Pressure Position Sitting 08/27/18 14:20 Pulse Oximetry 97 08/27/18 14:20 Oxygen Delivery Method Room Air 08/27/18 14:20 Oxygen Flow Rate 0 08/27/18 14:20 Pain Level 10 08/27/18 14:38
[2018-08-27] MEDS: Clindamycin 150 MG CAP 450 MG PO (15:43)
[2018-08-27 15:44] VITALS: BP 136/70; PULSE 72; RESP 16; TEMP 36.6; O2SAT 97
== END 2018-08-27 15:58 | disposition home or self-care (01) ==
PROVIDERS: Emergency Provider Nurse Practitioner Family; PCP Nurse Practitioner Family
DX: K04.7 Periapical abscess without sinus (principal); F17.210 Nicotine dependence, cigarettes, uncomplicated; I10 Essential (primary) hypertension
CPT/HCPCS: 99283

== ENCOUNTER 2019-03-14 07:00 | Outpatient (REF) | payer MEDICAID, SELFPAY ==
[2019-03-18 15:02] LABS: Fecal Immunochemical Test Negative (Negative)
== END 2019-03-14 07:20 ==
LOC: LBN 07:00
PROVIDERS: PCP Nurse Practitioner Family; Visit Provider Nurse Practitioner Family
DX: Z12.11 Encounter for screening for malignant neoplasm of colon (principal)
CPT/HCPCS: 82274

== ENCOUNTER 2019-03-21 00:44 | Outpatient (CLI) | payer MEDICAID, SELFPAY ==
--- NOTE | 2019-03-21 15:15 | DI.MAMMO_ITS ---
SYMPTOM/DIAGNOSIS: SCREENING Z12.31 MAMMOGRAM: 03/21 Mammograms were interpreted according to the usual protocol including computer analysis with CAD system, tomosynthesis and C view imaging. The breasts are of moderate density with fairly symmetrical distribution of fibroglandular tissue. No dominant mass or clumped microcalcifications identified in either breast. The current examination is compared with previous examination of 09/2015 and there has been no gross interval change in appearance since that time. CONCLUSION: No specific evidence of malignancy at this time. Routine screening examinations are suggested at yearly intervals due to the family history of breast carcinoma. Category 1 breast density category B. MQSA ASSESSMENT OF FINDINGS: Negative. Category 1. Patient will receive a letter notifying them of these results. BI-RADS category B. There are scattered areas of fibroglandular density.
== END 2019-03-21 01:04 ==
PROVIDERS: PCP Nurse Practitioner Family; Visit Provider Nurse Practitioner Family
DX: Z12.31 Encounter for screening mammogram for malignant neoplasm of breast (principal)
CPT/HCPCS: 77063; 77067

== ENCOUNTER 2019-09-20 02:11 | Outpatient (CLI) | payer MEDICAID, SELFPAY ==
[2019-09-20 08:59] LABS: BUN 13 mg/dL (7-18); CREATININE 0.87 mg/dL (0.55-1.02); Calcium 9.3 mg/dL (8.5-10.1); Calculated LDL 114 mg/dL (<100); Chloride 100 mmol/L (98-107); Cholesterol 229 mg/dL (<200); Glucose 142 mg/dL (74-106); HDL Cholesterol 44 mg/dL (40-60); Potassium 4.3 mmol/L (3.5-5.1); Sodium 141 mmol/L (136-145); TSH (W/Ref FT4) 2.21 uIU/mL (0.36-3.74); Triglyceride 355 mg/dL (<150)
== END 2019-09-20 02:31 ==
PROVIDERS: PCP Nurse Practitioner Family; Visit Provider Nurse Practitioner Family
DX: I10 Essential (primary) hypertension (principal); E03.9 Hypothyroidism, unspecified; E78.5 Hyperlipidemia, unspecified
CPT/HCPCS: 36415; 80048; 80061; 84443

== ENCOUNTER 2020-02-23 10:55 | Observation (INO) | payer MEDICAID, SELFPAY ==
[2020-02-23] VITALS (27 sets, daily range): BP systolic 81–189; BP diastolic 45–112; PULSE 94–111; RESP 16–23; TEMP 36.2–37.9; O2SAT 73–100
[2020-02-23] MEDS: Normal Saline Flush 10 ML SYR IVP (11:15)
[2020-02-23] MEDS: Normal Saline 1,000 ML 1000 ML IV (11:15)
[2020-02-23] MEDS: Ondansetron 4 MG/2 ML VIAL IVP (11:20)
[2020-02-23 11:27] LABS: Lactate 1.5 mmol/L (0.6-1.4)
[2020-02-23 11:28] LABS: Abs Immature Grans 0.05 k/cumm (0.0-0.09); Absolute Basophil Count 0.03 k/cumm (0.0-0.2); Absolute Eosinophil Count 0.02 k/cumm (0.0-0.7); Absolute Lymphocyte Count 1.38 k/cumm (1.2-3.4); Absolute Monocyte Count 0.36 k/cumm (0.11-0.7); Absolute Neutrophil Count 15.43 k/cumm (1.2-6.7); Basophils % 0.2; Eosinophils % 0.1; HCT 45.5 % (36.0-46.0); HGB 15.4 g/dL (12.0-15.5); Immature Grans % 0.3 %; Mean Corp. HGB Concentration 33.8 g/dL (32.0-36.0); Mean Corpuscular Hemoglobin 30.1 pg (27.0-33.0); Mean Platelet Volume 8.3 fL (8.0-11.0); Monocytes % 2.1; Neutrophils % 89.3; Platelet Count 326 x1000/uL (130-400); RBC 5.11 m/cumm (4.00-5.20); White Blood Cell Count 17.28 k/cumm (4.4-10.8)
[2020-02-23 11:47] LABS: ALT 41 U/L (14-59); AST 22 U/L (15-37); Albumin 4.1 g/dL (3.4-5.0); Alkaline Phosphatase 93 U/L (46-116); Anion Gap 9.1 mmol/L (3-11); BUN 16 mg/dL (7-18); Bilirubin, Total 0.4 mg/dL (0.2-1.0); CO2 29.9 mmol/L (21.0-32.0); CREATININE 0.96 mg/dL (0.55-1.02); Calcium 9.8 mg/dL (8.5-10.1); Chloride 100 mmol/L (98-107); Glucose 168 mg/dL (74-106); Lipase 69 U/L (73-393); Potassium 3.7 mmol/L (3.5-5.1); Sodium 139 mmol/L (136-145); Total Protein 8.3 g/dL (6.4-8.2)
[2020-02-23] MEDS: Metoclopramide 10 MG/2 ML VIAL IVP (12:22)
[2020-02-23 12:24] LABS: Bilirubin Negative (Negative); Blood Trace-intact (Negative); Clarity Clear (Clear); Glucose Negative (Negative); Ketones Negative (Negative); Leukocyte Esterase Negative (Negative); Nitrite Negative (Negative); Specific Gravity >= 1.030 (1.005-1.025); Urobilinogen 0.2 EU/dL (Up TO 0.2); pH 5.5 (5-8)
[2020-02-23] MEDS: Normal Saline - Diluent 50 ML VIAL IV (12:34)
[2020-02-23 12:36] LABS: Bacteria Moderate HPF (Negative); Casts Negative LPF (Negative); Crystals Negative HPF (Negative); Epithelial Cells Moderate HPF (Negative); Mucus Moderate (Negative); RBC 0-2 HPF (0-2); WBC 0-2 HPF (0-5)
[2020-02-23 12:37] LABS: C & S Indicated? No
--- NOTE | 2020-02-23 13:13 | DI.CT_ITS ---
EXAM: CT ABDOMEN PELVIS W CLINICAL HISTORY: Pain, nausea, vomiting, leukocytosis, elevated lac TECHNIQUE: COMPARISON: CT ABD/PELVIS WO W CONTRAST from 09/21/2015 FINDINGS: CT examination of the abdomen and pelvis was performed with intravenous infusion 100 cc of Omnipaque 350. Images obtained through the lung bases are unremarkable. Note is made of coronary artery calcificati on. There is decreased hepatic attenuation consistent with hepatic steatosis. No biliary dilatation. No focal hepatic lesion. Gallbladder is CT normal. Spleen is unremarkable in appearance. Pancreas ap pears normal. Adrenals and kidneys are unremarkable in appearance, no urinary tract calcification or obstruction. Abdominal aorta is of normal diameter and major visceral branches appear intact. No significant abdominal wall hernia. No abdominal or pelvic adenopathy. Appendix is dilated at about 14 millimeters. There is periappendiceal fat edema and minimal free flu id in the right pericolic gutter. Findings are consistent with acute uncomplicated appendicitis. No other focal bowel pathology identified. Orderly structures appear intact IMPRESSION: Appearance of the appendix is consistent with acute appendicitis, no evidence of perforation or absce ss formation. Incidental note is made of hepatic steatosis
--- NOTE | 2020-02-23 13:40 | W.ED.GENAD ---
Discharge Plan Disposition Patient Disposition: OTHER Condition: Serious Discharge Details Chief Complaint: Nausea/Vomit/Diar Clinical Impression: Acute appendicitis Attending Provider: Sweta Anders Primary Care Provider: Evelyn Coto ED Provider: Paco Fitzpatrick Medical Decision Making 54-year-old female with history of hypertension, GERD, renal stone, hyperlipidemia, hypothyroidism, depression, substance abuse, current smoker, diabetes, presents with abdominal pain, nausea, vomiting, diarrhea that began around 6:00 this morning. She is actively dry heaving and appears uncomfortable. Will obtain IV access, give IV Zofran, IV fluid and laboratory values. Differential includes but not excluded to gastroenteritis, biliary colic, appendicitis, ileus, small bowel obstruction, gastritis, colitis, etc. Patient continues to vomit, given IV Reglan of note, heart rate and blood pressure are trending downward Laboratory values reveal a white count of 17.28, lactate of 1.5, creatinine 0.96, GFR greater than 60. Urinalysis with trace blood but negative for signs of infection. Given the lactate and leukocytosis will obtain CT. Patient continues with nausea, given 12.[address] findings with radiology, uncomplicated appendicitis Call placed to surgery. Given her penicillin allergy of hives and difficulty breathing, will await their recommendations for antibiotic therapy. Case was discussed with Dr. Anders who will accept admission of the patient and recommends 750 IV Levaquin. HPI General Mode of arrival: ambulatory. Date/Time Provider Initiated Documentation: 02/23/20 11:02. Limitations to Documentation: no limitations. Information obtained by: patient. HPI Narrative: This is a 54-year-old female with significant past nuchal history that includes current smoking, diabetes type 2, substance abuse disorder, depression, hypothyroidism, hyperlipidemia, GERD, hypertension, asthma, presenting to the ER today reporting that around 6 AM this morning she began with generalized abdominal pain, crampy and moderate in nature associated with nausea, vomiting, diarrhea, chills. She reports a chronic cough but really no different than her baseline. She denies recent travel, sick contact, bad food exposure. She says she ate normally yesterday went to bed asymptomatic. She denies any fever, sore throat, headache, chest pain, back pain, dysuria, hematuria. No blood in her vomit or stools. No black tarry stools. She denies any abdominal surgeries whatsoever Related Data Home Medications Medication Instructions Recorded Confirmed varicella-zoster gE-AS01B (PF) 50 50 mcg IM .COMPLEX #1 each 05/26/18 02/23/20 mcg/0.5 mL IM susp, kit duloxetine 60 mg capsule,delayed 60 mg PO DAILY #90 tab-cap 03/04/19 02/23/20 release gabapentin 300 mg capsule 300 mg PO HS #90 tab-cap 03/04/19 02/23/20 aspirin 81 mg tablet,delayed 81 mg PO DAILY #90 tab-cap 05/27/19 02/23/20 release blood sugar diagnostic #100 each 05/27/19 02/23/20 blood-glucose meter #1 each 05/27/19 02/23/20 lancets #100 each 05/27/19 02/23/20 lisinopril 10 mg tablet 10 mg PO DAILY #90 tab-cap 11/07/19 02/23/20 albuterol sulfate 90 mcg/actuation 1 - 2 puff IH Q4H PRN #1 device 11/25/19 02/23/20 aerosol inhaler atorvastatin 40 mg tablet 40 mg PO DAILY #90 tab-cap 11/25/19 02/23/20 bupropion HCl 150 mg 24 hr tablet, 450 mg PO QAM #135 tab-cap 12/23/19 02/23/20 extended release levothyroxine 50 mcg tablet 50 mcg PO DAILY #90 tab-cap 12/23/19 02/23/20 omeprazole 20 mg capsule,delayed 20 mg PO DAILY #90 tab-cap 01/30/20 02/23/20 release metformin 1,000 mg tablet 500 mg PO DAILY #90 tab-cap 02/02/20 02/23/20 methadone 10 mg/mL oral concentrate 5 mg PO DAILY ml 02/02/20 02/23/20 hydrochlorothiazide 25 mg tablet 25 mg PO DAILY #90 tab-cap 02/13/20 02/23/20 Previous Rx's Medication Instructions Recorded varicella-zoster gE-AS01B (PF) 50 50 mcg IM .COMPLEX #1 each 05/26/18 mcg/0.5 mL IM susp, kit duloxetine 60 mg capsule,delayed 60 mg PO DAILY #90 tab-cap 03/04/19 release gabapentin 300 mg capsule 300 mg PO HS #90 tab-cap 03/04/19 aspirin 81 mg tablet,delayed 81 mg PO DAILY #90 tab-cap 05/27/19 release blood sugar diagnostic #100 each 05/27/19 blood-glucose meter #1 each 05/27/19 lancets #100 each 05/27/19 lisinopril 10 mg tablet 10 mg PO DAILY #90 tab-cap 11/07/19 albuterol sulfate 90 mcg/actuation 1 - 2 puff IH Q4H PRN #1 device 11/25/19 aerosol inhaler atorvastatin 40 mg tablet 40 mg PO DAILY #90 tab-cap 11/25/19 bupropion HCl 150 mg 24 hr tablet, 450 mg PO QAM #135 tab-cap 12/23/19 extended release levothyroxine 50 mcg tablet 50 mcg PO DAILY #90 tab-cap 12/23/19 omeprazole 20 mg capsule,delayed 20 mg PO DAILY #90 tab-cap 01/30/20 release metformin 1,000 mg tablet 500 mg PO DAILY #90 tab-cap 02/02/20 hydrochlorothiazide 25 mg tablet 25 mg PO DAILY #90 tab-cap 02/13/20 Allergies Allergy/AdvReac Type Severity Reaction Status Date / Time amoxicillin Allergy Intermediate Hives Verified 02/23/20 11:03 venlafaxine AdvReac Unknown nausea Verified 02/23/20 11:03 09/12/09 General Stated Complaint: Nausea/Vomit/Diar HONG: 3 Review of Systems Constitutional Constitutional: Reports chills, Denies fatigue, Denies fever(s) and Denies headache(s) ENT Ears, Nose, Mouth, and Throat: Denies headache(s), Denies neck pain and Denies sore throat Cardiovascular Cardiovascular: Denies chest pain and Denies dyspnea Respiratory Respiratory: Reports cough (Chronic) and Denies dyspnea Gastrointestinal Gastrointestinal: Reports abdominal pain, Denies melena, Denies hematochezia, Reports cramping, Reports diarrhea and Reports vomiting Genitourinary Genitourinary: Denies dysuria Musculoskeletal Musculoskeletal: Denies back pain and Denies neck pain Integumentary/Breasts Skin/Breast: Denies rash Neurologic Neurologic: Denies headache(s) Endocrine Endocrine: Denies fatigue Hematologic/Lymphatic Hematologic/Lymphatic: Denies easy bleeding and Denies easy bruising [facility] Medical History (Updated 02/23/20 @ 15:44 by KIRA Woods) Acute appendicitis (Acute) Asthma (Chronic 02/08/15) Last PFT: 02/19/15 with normal FEV1/FVC of 98% predicted (pre-bronchodilator) & no bronchodilator response Essential hypertension (Chronic 08/17/17) Fatigue (Chronic 02/08/15) Gastroesophageal reflux disease (Chronic 06/10/17) History of nephrolithiasis (Inactive 02/08/15) Most recent imaging 11/29/13: nonobstructing bilateral nephrolithiasis Hyperlipidemia, unspecified (Chronic 02/08/15) 11/2019: increased to high intensity statin due to LDL not at goal Hypothyroidism, unspecified (Chronic 06/02/17) IFG (impaired fasting glucose) (Inactive 02/16/18) Leiomyoma of uterus, unspecified (Chronic) Major depressive disorder, recurrent (Chronic 06/03/17) Menorrhagia with regular cycle (Chronic 11/08/15) Periodic limb movement disorder (Chronic 09/07/15) [facility] PVCs (premature ventricular contractions) (Chronic) 07/2018 ZioPatch Substance use disorder (Chronic) EtOH, cocaine, opiates; [facility] for MAT with methadone Tobacco use disorder (Chronic 02/08/15) Type 2 diabetes mellitus, without long-term current use of insulin (Acute) Upper airway resistance syndrome (Chronic 02/08/15) Symptoms include snoring & excessive daytime sleepiness. [facility] Surgical History Ligation of fallopian tube (Resolved 08/25/12) Family History Mother Breast cancer Father Diabetes Mental disorder anxiety Grandfather , stomach CA Neoplasm Grandmother Diabetes Alcohol abuse Heart disease Sister , Lung CA Neoplasm Throat CA (smoker) Lung cancer Social History Smoking/Tobacco Use Status: Current every day Alcohol Intake: former Drug use: Current Sobriety Substance use type: does not use Caregiver/Support person: No Household members: significant other Number of Children: 2 Communication Needs: None current occupation: House cleaning Pets and animals: No Sexually active: Yes Current gender identity: female What type of physical activity do you participate in: none Seatbelt use: always Helmet use: Yes Do you feel safe at home: Yes Do you feel safe in your relationship?: Yes Exam Const General: cooperative, healthy appearing, comfortable and no acute distress Orientation: alert, awake and oriented x3 HENMT Head: normal to inspection, normocephalic and atraumatic Mouth: moist mucous membranes Throat: posterior oropharynx normal Eyes Conjunctivae: conjunctivae normal Sclera: sclerae normal Neck Neck: normal visual inspection, full ROM, trachea midline, supple and nontender Resp Effort & Inspection: normal respiratory effort and able to speak in complete sentences Auscultation: clear to auscultation bilaterally Cardio Rate: regular rate Rhythm: regular rhythm GI Inspection: normal to inspection Palpation: soft, not firm, no guarding, not rigid and tender other (Diffuse mild, slightly worse right lower quadrant) Auscultation: normal bowel sounds Back/Spine/Pelvis Back: No back tenderness Skin General skin exam: no rashes or lesions noted Neuro General: patient alert, patient awake, moves all extremities and no focal motor deficits Sensory Exam: no sensory deficits noted Extrem General: normal to inspection, full ROM and capillary refill normal Psych Appearance: grossly normal Mental Status: mental status grossly normal Course Vital Signs Vital signs: Vital Signs Temperature 36.4 C L 02/23/20 10:58 Pulse 101 H 02/23/20 10:58 Respiratory Rate 18 02/23/20 10:58 Blood Pressure 189/112 H 02/23/20 10:58 Pulse Oximetry 98 02/23/20 10:58 Temperature 36.4 C L 02/23/20 10:58 Pulse 101 H 02/23/20 10:58 Respiratory Rate 18 02/23/20 10:58 Respiratory Effort Non-Labored 02/23/20 11:01 Blood Pressure 189/112 H 02/23/20 10:58 Blood Pressure Position Sitting 02/23/20 10:58 Pulse Oximetry 98 02/23/20 10:58 Oxygen Delivery Method Room Air 02/23/20 10:58 Oxygen Flow Rate 0 02/23/20 10:58 Pain Level 9 02/23/20 10:58 Lab/Test Results Lab/Test Results: Laboratory Tests Range/Units 02/23/20 02/23/20 02/23/20 11:15 11:15 11:15 WBC (4.4-10.8) k/cumm 17.28 H RBC (4.00-5.20) m/cumm 5.11 Hgb (12.0-15.5) g/dL 15.4 Hct (36.0-46.0) % 45.5 MCV (80-95) fL 89.0 MCH (27.0-33.0) pg 30.1 MCHC (32.0-36.0) g/dL 33.8 RDW (11.7-14.6) % 13.0 Plt Count (130-400) x1000/uL 326 MPV (8.0-11.0) fL 8.3 Immature Gran % % 0.3 Neutrophils % 89.3 Lymphocytes % 8.0 Monocytes % 2.1 Eosinophils % 0.1 Basophils % 0.2 Absolute Neutrophils (1.2-6.7) k/cumm 15.43 H Absolute Lymphocytes (1.2-3.4) k/cumm 1.38 Absolute Monocytes (0.11-0.7) k/cumm 0.36 Absolute Eosinophils (0.0-0.7) k/cumm 0.02 Absolute Basophils (0.0-0.2) k/cumm 0.03 Sodium (136-145) mmol/L 139 Potassium (3.5-5.1) mmol/L 3.7 Chloride (98-107) mmol/L 100 Carbon Dioxide (21.0-32.0) mmol/L 29.9 Anion Gap (3-11) mmol/L 9.1 BUN (7-18) mg/dL 16 Creatinine (0.55-1.02) mg/dL 0.96 Estimated GFR/1.73 m2 (mL/min/1.73m2) >= 60.00 Glucose (74-106) mg/dL 168 H Lactate (0.6-1.4) mmol/L 1.5 H Calcium (8.5-10.1) mg/dL 9.8 Total Bilirubin (0.2-1.0) mg/dL 0.4 AST (15-37) U/L 22 ALT (14-59) U/L 41 Alkaline Phosphatase (46-116) U/L 93 Total Protein (6.4-8.2) g/dL 8.3 H Albumin (3.4-5.0) g/dL 4.1 Lipase (73-393) U/L 69 Urine Color (Yellow) Urine Clarity (Clear) Urine pH (5-8) Ur Specific [place] (1.005-1.025) Urine Protein (Negative) mg/dL Urine Ketones (Negative) mg/dL Urine Blood (Negative) Urine Nitrite (Negative) Urine Bilirubin (Negative) Urine Urobilinogen (Up TO 0.2) EU/dL Ur Leukocyte Esterase (Negative) Urine RBC (0-2) HPF Urine WBC (0-5) HPF Ur Epithelial Cells (Negative) HPF Urine Crystals (Negative) HPF Urine Bacteria (Negative) HPF Urine Casts (Negative) LPF Urine Mucus (Negative) Urine Other (Negative) Ur Culture Indicated? Urine Glucose (Negative) mg/dL Range/Units 02/23/20 12:17 WBC (4.4-10.8) k/cumm RBC (4.00-5.20) m/cumm Hgb (12.0-15.5) g/dL Hct (36.0-46.0) % MCV (80-95) fL MCH (27.0-33.0) pg MCHC (32.0-36.0) g/dL RDW (11.7-14.6) % Plt Count (130-400) x1000/uL MPV (8.0-11.0) fL Immature Gran % % Neutrophils % Lymphocytes % Monocytes % Eosinophils % Basophils % Absolute Neutrophils (1.2-6.7) k/cumm Absolute Lymphocytes (1.2-3.4) k/cumm Absolute Monocytes (0.11-0.7) k/cumm Absolute Eosinophils (0.0-0.7) k/cumm Absolute Basophils (0.0-0.2) k/cumm Sodium (136-145) mmol/L Potassium (3.5-5.1) mmol/L Chloride (98-107) mmol/L Carbon Dioxide (21.0-32.0) mmol/L Anion Gap (3-11) mmol/L BUN (7-18) mg/dL Creatinine (0.55-1.02) mg/dL Estimated GFR/1.73 m2 (mL/min/1.73m2) Glucose (74-106) mg/dL Lactate (0.6-1.4) mmol/L Calcium (8.5-10.1) mg/dL Total Bilirubin (0.2-1.0) mg/dL AST (15-37) U/L ALT (14-59) U/L Alkaline Phosphatase (46-116) U/L Total Protein (6.4-8.2) g/dL Albumin (3.4-5.0) g/dL Lipase (73-393) U/L Urine Color (Yellow) Yellow Urine Clarity (Clear) Clear Urine pH (5-8) 5.5 Ur Specific [place] (1.005-1.025) >= 1.030 H Urine Protein (Negative) mg/dL Trace H Urine Ketones (Negative) mg/dL Negative Urine Blood (Negative) Trace-intact H Urine Nitrite (Negative) Negative Urine Bilirubin (Negative) Negative Urine Urobilinogen (Up TO 0.2) EU/dL 0.2 Ur Leukocyte Esterase (Negative) Negative Urine RBC (0-2) HPF 0-2 Urine WBC (0-5) HPF 0-2 Ur Epithelial Cells (Negative) HPF Moderate Urine Crystals (Negative) HPF Negative Urine Bacteria (Negative) HPF Moderate Urine Casts (Negative) LPF Negative Urine Mucus (Negative) Moderate Urine Other (Negative) Ur Culture Indicated? No Urine Glucose (Negative) mg/dL Negative
[2020-02-23 14:08] LABS: PTT Activated 24.7 sec (21.0-31.4); Prothrombin Time 9.9 sec (9.3-11.0)
--- NOTE | 2020-02-23 14:25 | W.PM.HP.N ---
Date of service: 02/23/20 Time of Service: 14:25 Assessment and Plan Assessment and plan (1) Type 2 diabetes mellitus, without long-term current use of insulin: Status: Acute Qualifiers: Diabetes mellitus complication status: without complication Qualified Code(s): E11.9 - Type 2 diabetes mellitus without complications (2) PVCs (premature ventricular contractions): Status: Chronic (3) Upper airway resistance syndrome: Status: Chronic (4) Tobacco use disorder: Status: Chronic (5) Substance use disorder: Status: Chronic (6) Periodic limb movement disorder: Status: Chronic (7) Major depressive disorder, recurrent: Status: Chronic Qualifiers: Active/Remission status: in remission of unspecified degree Qualified Code(s): F33.40 - Major depressive disorder, recurrent, in remission, unspecified (8) Hypothyroidism, unspecified: Status: Chronic Qualifiers: Hypothyroidism type: unspecified Qualified Code(s): E03.9 - Hypothyroidism, unspecified (9) Hyperlipidemia, unspecified: Status: Chronic Qualifiers: Hyperlipidemia type: unspecified Qualified Code(s): E78.5 - Hyperlipidemia, unspecified (10) Gastroesophageal reflux disease: Status: Chronic (11) Essential hypertension: Status: Chronic (12) Asthma: Status: Chronic Qualifiers: Asthma complication type: uncomplicated Asthma persistence: intermittent Asthma severity: mild Qualified Code(s): J45.20 - Mild intermittent asthma, uncomplicated (13) Acute appendicitis: Status: Acute Assessment and plan: the pt and/or family could understand) explaining risks vs benefits and alternatives to the procedure and consequences if we do not do the procedure. Risks include but are not limited to:bleeding,infections, pneumonia, blood clots/DVT/PE, anesthesia(aspiration, damage to teeth/airway/ND/CVA//prolonged mechanical ventilation/PTX/IV infections), damage to bowel, bladder,blood vessels, ureters. Damage to solid organs requiring removal. Infertility. Leakage from anastomosis requiring colostomy/ Wound infections requiring further surgery. Scarring and disfigurement. Subsequent bowel obstructions from scar tissue. Possible open procedure if minimally invasive procedure is being attempted. Postop abscess. History of Present Illness Consults Consult date: 02/23/20 Narrative: Patient woke up this a.m. complaining of abdominal pain and nausea. She is never had anything like this before she denies any history of stomach problems. She denies any history of trauma. Last bowel movement was yesterday. She denies any. With urination. It radiates in the left side and into her back. She does have a history of chronic back pain. It is been worse lately. Her only abdominal surgery is a tubal. She has no umbilical hernias. CTs and lab work reviewed. She has not had a recent blood sugar. The discussed risks and benefits of surgery and recovery time. She will be admitted postoperatively because of her elevated white count. She currently is has low-grade temp and has shaking chills. She still has some mild nausea and abdominal pain. Patient denies any recent exposure to the public. In Review of Systems All systems reviewed & are unremarkable except as noted in HPI and below [facility] Medical History (Updated 02/23/20 @ 14:57 by Sweta Anders DO) Acute appendicitis (Acute) Asthma (Chronic 02/08/15) Last PFT: 02/19/15 with normal FEV1/FVC of 98% predicted (pre-bronchodilator) & no bronchodilator response Essential hypertension (Chronic 08/17/17) Fatigue (Chronic 02/08/15) Gastroesophageal reflux disease (Chronic 06/10/17) History of nephrolithiasis (Inactive 02/08/15) Most recent imaging 11/29/13: nonobstructing bilateral nephrolithiasis Hyperlipidemia, unspecified (Chronic 02/08/15) 11/2019: increased to high intensity statin due to LDL not at goal Hypothyroidism, unspecified (Chronic 06/02/17) IFG (impaired fasting glucose) (Inactive 02/16/18) Leiomyoma of uterus, unspecified (Chronic) Major depressive disorder, recurrent (Chronic 06/03/17) Menorrhagia with regular cycle (Chronic 11/08/15) Periodic limb movement disorder (Chronic 09/07/15) [facility] PVCs (premature ventricular contractions) (Chronic) 07/2018 ZioPatch Substance use disorder (Chronic) EtOH, cocaine, opiates; [facility] for MAT with methadone Tobacco use disorder (Chronic 02/08/15) Type 2 diabetes mellitus, without long-term current use of insulin (Acute) Upper airway resistance syndrome (Chronic 02/08/15) Symptoms include snoring & excessive daytime sleepiness. [facility] Surgical History Ligation of fallopian tube (Resolved 08/25/12) Family History Mother Breast cancer Father Diabetes Mental disorder anxiety Grandfather , stomach CA Neoplasm Grandmother Diabetes Alcohol abuse Heart disease Sister , Lung CA Neoplasm Throat CA (smoker) Lung cancer Social History Smoking/Tobacco Use Status: Current every day Alcohol Intake: former Drug use: Current Sobriety Substance use type: does not use Caregiver/Support person: No Household members: significant other Number of Children: 2 Communication Needs: None current occupation: House cleaning Pets and animals: No Sexually active: Yes Current gender identity: female What type of physical activity do you participate in: none Seatbelt use: always Helmet use: Yes Do you feel safe at home: Yes Do you feel safe in your relationship?: Yes Meds Home Medications and Allergies Home Medications Medication Instructions Recorded Confirmed Type varicella-zoster [id number] (PF) 50 50 mcg IM .COMPLEX #1 each 05/26/18 02/23/20 Rx mcg/0.5 mL IM susp, kit duloxetine 60 mg capsule,delayed 60 mg PO DAILY #90 tab-cap 03/04/19 02/23/20 Rx release gabapentin 300 mg capsule 300 mg PO HS #90 tab-cap 03/04/19 02/23/20 Rx aspirin 81 mg tablet,delayed 81 mg PO DAILY #90 tab-cap 05/27/19 02/23/20 Rx release blood sugar diagnostic #100 each 05/27/19 02/23/20 Rx blood-glucose meter #1 each 05/27/19 02/23/20 Rx lancets #100 each 05/27/19 02/23/20 Rx lisinopril 10 mg tablet 10 mg PO DAILY #90 tab-cap 11/07/19 02/23/20 Rx albuterol sulfate 90 mcg/actuation 1 - 2 puff IH Q4H PRN #1 device 11/25/19 02/23/20 Rx aerosol inhaler atorvastatin 40 mg tablet 40 mg PO DAILY #90 tab-cap 11/25/19 02/23/20 Rx bupropion HCl 150 mg 24 hr tablet, 450 mg PO QAM #135 tab-cap 12/23/19 02/23/20 Rx extended release levothyroxine 50 mcg tablet 50 mcg PO DAILY #90 tab-cap 12/23/19 02/23/20 Rx omeprazole 20 mg capsule,delayed 20 mg PO DAILY #90 tab-cap 01/30/20 02/23/20 Rx release metformin 1,000 mg tablet 500 mg PO DAILY #90 tab-cap 02/02/20 02/23/20 Rx methadone 10 mg/mL oral concentrate 5 mg PO DAILY ml 02/02/20 02/23/20 History hydrochlorothiazide 25 mg tablet 25 mg PO DAILY #90 tab-cap 02/13/20 02/23/20 Rx Allergies Allergy/AdvReac Type Severity Reaction Status Date / Time amoxicillin Allergy Intermediate Hives Verified 02/23/20 11:03 venlafaxine AdvReac Unknown nausea Verified 02/23/20 11:03 09/12/09 Exam Const General: cooperative, healthy appearing, comfortable, no acute distress, well developed and well groomed Nutritional Appearance: average body habitus and well nourished Orientation: alert, awake and oriented x3 Other: Patient has a low-grade temp and shaking chills. [facility] Head: normal to inspection, normocephalic and atraumatic Ears: hearing grossly normal bilaterally and external ears normal General nose exam: external nose normal Face and sinus: normal facial exam and sinuses nontender Mouth: oral mucosae normal, lip normal, tongue normal and moist mucous membranes Teeth and gingiva: dentition normal Eyes General: appearance normal, both eyes and all related structures Conjunctivae: conjunctivae normal Sclera: sclerae normal Pupils: PERRL Neck Neck: normal visual inspection and full ROM Chest Chest: normal inspection of the chest Resp Effort & Inspection: normal respiratory effort, able to speak in complete sentences, no cough, no nasal flaring, not tachypneic and no use of accessory muscles Auscultation: clear to auscultation bilaterally, no rales, no rhonchi and no wheezes Cardio Jugular venous pressure: no JVD Rate: regular rate Rhythm: regular rhythm GI Inspection: normal to inspection, no edema and non-distended Palpation: soft, no masses, tender (Radiates to the left side and into the back.) in the RLQ and No ascites Auscultation: normal bowel sounds Skin General skin exam: no rashes or lesions noted Trauma: no lacerations or abrasions Neuro General: patient alert, patient oriented x3, oriented, gait normal, moves all extremities, no focal motor deficits and CN's II-XI intact bilaterally Cognition: normal cognition Speech: speech normal Gait: normal gait Motor: muscle tone normal throughout Extrem General: normal to inspection, full ROM and no clubbing, cyanosis or edema Psych Appearance: grossly normal and well kempt Mental Status: mental status grossly normal Speech and Movement: speech and movement normal Affect: normal affect Results Labs Result diagrams: 02/23/20 11:15 02/23/20 11:15 Labs: Laboratory Results - last 24 hr 02/23/20 02/23/20 02/23/20 11:15 11:15 11:15 WBC 17.28 H RBC 5.11 Hgb 15.4 Hct 45.5 MCV 89.0 MCH 30.1 MCHC 33.8 RDW 13.0 Plt Count 326 MPV 8.3 Immature Gran % 0.3 Neutrophils % 89.3 Lymphocytes % 8.0 Monocytes % 2.1 Eosinophils % 0.1 Basophils % 0.2 Absolute Neutrophils 15.43 H Absolute Lymphocytes 1.38 Absolute Monocytes 0.36 Absolute Eosinophils 0.02 Absolute Basophils 0.03 PT INR APTT Sodium 139 Potassium 3.7 Chloride 100 Carbon Dioxide 29.9 Anion Gap 9.1 BUN 16 Creatinine 0.96 Estimated GFR/1.73 m2 >= 60.00 Glucose 168 H Lactate 1.5 H Calcium 9.8 Total Bilirubin 0.4 AST 22 ALT 41 Alkaline Phosphatase 93 Total Protein 8.3 H Albumin 4.1 Lipase 69 Urine Color Urine Clarity Urine pH Ur Specific [place] Urine Protein Urine Ketones Urine Blood Urine Nitrite Urine Bilirubin Urine Urobilinogen Ur Leukocyte Esterase Urine RBC Urine WBC Ur Epithelial Cells Urine Crystals Urine Bacteria Urine Casts Urine Mucus Urine Other Ur Culture Indicated? Urine Glucose 02/23/20 02/23/20 11:30 12:17 WBC RBC Hgb Hct MCV MCH MCHC RDW Plt Count MPV Immature Gran % Neutrophils % Lymphocytes % Monocytes % Eosinophils % Basophils % Absolute Neutrophils Absolute Lymphocytes Absolute Monocytes Absolute Eosinophils Absolute Basophils PT 9.9 INR 1.0 APTT 24.7 Sodium Potassium Chloride Carbon Dioxide Anion Gap BUN Creatinine Estimated GFR/1.73 m2 Glucose Lactate Calcium Total Bilirubin AST ALT Alkaline Phosphatase Total Protein Albumin Lipase Urine Color Yellow Urine Clarity Clear Urine pH 5.5 Ur Specific [place] >= 1.030 H Urine Protein Trace H Urine Ketones Negative Urine Blood Trace-intact H Urine Nitrite Negative Urine Bilirubin Negative Urine Urobilinogen 0.2 Ur Leukocyte Esterase Negative Urine RBC 0-2 Urine WBC 0-2 Ur Epithelial Cells Moderate Urine Crystals Negative Urine Bacteria Moderate Urine Casts Negative Urine Mucus Moderate Urine Other Ur Culture Indicated? No Urine Glucose Negative Last Vital Signs Temp 36.4 C L 02/23/20 10:58 Pulse 94 H 02/23/20 13:31 Resp 18 02/23/20 10:58 BP 142/72 H 02/23/20 13:31 Pulse Ox 98 02/23/20 13:40
[2020-02-23] MEDS: levoFLOXacin 750 MG/150 ML BAG 100 MG IVPB (14:45)
[2020-02-23] MEDS: Normal Saline 1,000 ML 150 ML IV ×2 (14:47→16:48)
--- NOTE | 2020-02-23 16:06 | APP_PTH ---
PATIENT: Zoë Garcia LOC: [id number]#:[id number] AGE/SX: 54/F ROOM: 231 RE02/23/[address]: Sweta Anders : 1965 BED: A DIS: 02/24/2020 SPEC #: [id number] RECD: 02/23/20 18:00 STATUS: IKE REQ #: [id number] SAMARA: 02/23/20 16:[address]: Sweta Anders DEPT: Surgical Specimen RECD BY: Deyanira Prabhakar ENTERED: 02/23/20 18:00 SP TYPE: Appendix OTHR DR: Evelyn Coto APRN Tissues: 1 - APPENDIX NOT INCIDENTAL Procedures: GROSS AND MICRO LEVEL 3 Comments: [id number]
--- NOTE | 2020-02-23 16:31 | W.PM.OP ---
Date of service: 02/23/20 Time of Service: 16:31 Operative Note Operative Note DATE OF PROCEDURE: 02/23/20 PRE-OP DIAGNOSIS: acute appendicitis POST-OP DIAGNOSIS: same PROCEDURE: eloina sharma SURGEON: Khushboo Partida [employer]ARN[employer] SPECIALIST: Naheed Reynolds ANESTHESIA: GETA ESTIMATED BLOOD LOSS: 10 PATHOLOGY: other COMPLICATIONS: None Patient was transported to: PACU Patient's condition: stable Procedure Description: COMPLICATIONS: The patient tolerated the procedure well without complications. INDICATIONS: The patient has signs and symptoms compatible with acute appendicitis and is brought to the OR for laparoscopic appendectomy, possible open procedure. Informed consent is obtained for the procedural (explained in simple layman's terms that the pt and/or family could understand) explaining risks vs benefits and alternatives to the procedure and consequences if we do not do the procedure. Risks include but are not limited to:bleeding,infections, pneumonia, blood clots/DVT/PE, anesthesia(aspiration, damage to teeth/airway/CO/CVA//prolonged mechanical ventilation/PTX/IV infections), damage to bowel, bladder,blood vessels, ureters. Damage to solid organs requiring removal. Infertility. Leakage from anastomosis requiring colostomy. Wound infections requirng further surgery. Scarring and disfigurement. Subsequent bowel obstructions from scar tissue. Possible open procedure if minimaly invsive procedure is being attempted. Abscess and stump appendicitis as well as others. DESCRIPTION OF PROCEDURE: The patient was brought to the operating room suite and placed in supine position. Anesthesia was administered per the Department of Anesthesia. A Khalil catheter and OG tube are placed. The patient was prepped and draped in the usual sterile fashion using ChloraPrep scrub solution. Pause for the cause was done. 30 mL of 1% buffered was used for local anesthetization. A stab incision was made in the umbilicus and the Veress was inserted. Drop test was positive and insufflation was begun. When 15 mm of pressure was noted on the monitor, the Veress was removed, a #5 port inserted. Camera inserted through the port shows no damage to underlying structures. Bowel, liver and stomach that are visualized are normal in appearance. Pelvic organs are not visualized. The appendix is inflamed, erythematous,enlarged, & distened, but does not appear to have been ruptured. There is no purulent drainage in the pelvis. It is not adhered to any adjacent structures. A 12 mm port was then placed in the suprapubic position under direct visualization following creation of a local field block as well as a second 5 mm port in the LLQ. The appendix is elevated and a rent dissected into the mesentery. The base of the appendix is healthy and will hold victoriano. A Endo-SUKUMAR stapler is placed across the base of the appendix and fired and 2nd stapler placed across the mesentery and fired. The appendix is placed in a bag and brought out. There is no bleeding or enteric leakage from the staple lines. The pt does not require a drain. The abdomen was copiously irrigated with a liter of saline. All saline is evacuated. The scope and ports are removed. Pneumoperitoneum is evacuated. The fascia under the 12 mm port is closed with 0 Vicryl. There was no bleeding from the port sites as when they removed and the pneumoperitoneum evacuated. The wounds were copiously irrigated and closed in 2 layers with 4-0 Monocryl. Sterile tape and sterile dressings are applied. The patient tolerated the procedure without complication, transferred to the recovery room in stable condition. Family was apprised of patient condition. KHUSHBOO PARTIDA DO
--- NOTE | 2020-02-23 18:35 | PGE_ITS ---
Date of Service Date of service: 02/23/20 Time of Service: 18:35 Assessment and Plan Assessment and plan (1) Acute appendicitis: Status: Acute Assessment and plan: Patient is status post appendectomy. She is admitted for hydration, pain management, close nursing observation, and routine postop cares. She received 1 dose of antibiotics of Levaquin 500 mg IV piggyback preop. She should not require any further antibiotics. We will repeat her CBC in a.m. Pain control try to do as much as possible with adjuvants and avoid narcotics Toradol Tylenol and ice and muscle relaxers. She needs to be up walking around today. Start with clear liquids and advance as tolerated. She did have a catheter in her bladder during surgery and may have some burning postop. Otherwise she is doing well and for CBC is normalizing in the morning she can be discharged home Also she did have a CAT scan with contrast, so we will need to hold her metformin. We will use the low insulin sliding scale for the next 24 hours due to the loss of metformin. (2) Upper airway resistance syndrome: Status: Chronic (3) Tobacco use disorder: Status: Chronic (4) Substance use disorder: Status: Chronic (5) Menorrhagia with regular cycle: Status: Chronic (6) Hypothyroidism, unspecified: Status: Chronic Qualifiers: Hypothyroidism type: unspecified Qualified Code(s): E03.9 - Hypothyroidism, unspecified (7) Hyperlipidemia, unspecified: Status: Chronic Qualifiers: Hyperlipidemia type: unspecified Qualified Code(s): E78.5 - Hyperlipidemia, unspecified (8) History of nephrolithiasis: Status: Inactive (9) Gastroesophageal reflux disease: Status: Chronic (10) Essential hypertension: Status: Chronic (11) Asthma: Status: Chronic Qualifiers: Asthma severity: mild Asthma persistence: intermittent Asthma complication type: uncomplicated Qualified Code(s): J45.20 - Mild intermittent asthma, uncomplicated (12) Periodic limb movement disorder: Status: Chronic Subjective Subjective Interval history since last seen: Pt is doing well. no headaches. No CP or SOB. no productive cough. no dysuria. no leg pain or swelling. He still is pretty groggy from surgery. She did have a catheter in during surgery. She is not currently having any pain. No eye pain no mouth pain no sore throat. Incisions are clean dry and intact there is no bleeding she denies any abdominal pain Exam HENMT Other: No eye redness or drainage or pain. No sore throat. No dental malocclusion. No thrush. No dental injury. Resp Effort & Inspection: normal respiratory effort and able to speak in complete sentences Auscultation: clear to auscultation bilaterally Cardio Rate: regular rate Rhythm: regular rhythm Other: No chest pain or shortness of breath. No productive cough. No fevers. GI Inspection: incision (Clean dry and intact with no redness drainage swelling or ecchymosis) and striae Palpation: soft Auscultation: normal bowel sounds Extrem General: normal to inspection, full ROM, capillary refill normal and no clubbing, cyanosis or edema Objective Objective Clinical Data: Abnormal lab results 02/23/20 02/23/20 02/23/20 Range/Units 11:15 11:15 11:15 WBC 17.28 H (4.4-10.8) k/cumm Absolute Neutrophils 15.43 H (1.2-6.7) k/cumm Glucose 168 H (74-106) mg/dL Lactate 1.5 H (0.6-1.4) mmol/L Total Protein 8.3 H (6.4-8.2) g/dL Ur Specific [place] (1.005-1.025) Urine Protein (Negative) mg/dL Urine Blood (Negative) 02/23/20 Range/Units 12:17 WBC (4.4-10.8) k/cumm Absolute Neutrophils (1.2-6.7) k/cumm Glucose (74-106) mg/dL Lactate (0.6-1.4) mmol/L Total Protein (6.4-8.2) g/dL Ur Specific [place] >= 1.030 H (1.005-1.025) Urine Protein Trace H (Negative) mg/dL Urine Blood Trace-intact H (Negative) Vital Signs Temperature 37.3 C 02/23/20 18:29 Temperature Source Tympanic 02/23/20 18:29 Pulse 98 H 02/23/20 18:29 Pulse Rhythm Regular 02/23/20 18:03 Respiratory Rate 16 02/23/20 18:29 Respiratory Effort Non-Labored 02/23/20 18:03 Respiratory Depth Normal 02/23/20 18:03 Respiratory Pattern Normal 02/23/20 18:03 Blood Pressure 123/80 02/23/20 18:29 Blood Pressure Mean 103 02/23/20 14:46 Blood Pressure Position Sitting 02/23/20 10:58 Pulse Oximetry 96 02/23/20 18:29 Respiratory End-tidal CO2 40 02/23/20 17:20 Oxygen Delivery Method Room Air 02/23/20 18:29 Oxygen Flow Rate 0 02/23/20 18:29 Pain Level 5 02/23/20 18:29 Intake & Output 02/22/20 02/23/20 02/23/20 23:59 11:59 23:59 Intake Total 2310.5 / 2310.5 Output Total 200 / 200 Balance 2110.5 / 2110.5 Weight 80.286 kg 80.286 kg Intake: IV 2300.5 / 2300.5 Oral Output: Urine 200 / 200 Other: Urine Color Yellow Urine Appearance Clear Stool Characteristics Liquid Emesis Description Bile None Laboratory Results WBC 17.28 k/cumm (4.4-10.8) H 02/23/20 11:15 RBC 5.11 m/cumm (4.00-5.20) 02/23/20 11:15 Hgb 15.4 g/dL (12.0-15.5) 02/23/20 11:15 Hct 45.5 % (36.0-46.0) 02/23/20 11:15 MCV 89.0 fL (80-95) 02/23/20 11:15 MCH 30.1 pg (27.0-33.0) 02/23/20 11:15 MCHC 33.8 g/dL (32.0-36.0) 02/23/20 11:15 RDW 13.0 % (11.7-14.6) 02/23/20 11:15 Plt Count 326 x1000/uL (130-400) 02/23/20 11:15 MPV 8.3 fL (8.0-11.0) 02/23/20 11:15 Immature Gran % 0.3 % 02/23/20 11:15 Neutrophils % 89.3 02/23/20 11:15 Lymphocytes % 8.0 02/23/20 11:15 Monocytes % 2.1 02/23/20 11:15 Eosinophils % 0.1 02/23/20 11:15 Basophils % 0.2 02/23/20 11:15 Absolute Neutrophils 15.43 k/cumm (1.2-6.7) H 02/23/20 11:15 Absolute Lymphocytes 1.38 k/cumm (1.2-3.4) 02/23/20 11:15 Absolute Monocytes 0.36 k/cumm (0.11-0.7) 02/23/20 11:15 Absolute Eosinophils 0.02 k/cumm (0.0-0.7) 02/23/20 11:15 Absolute Basophils 0.03 k/cumm (0.0-0.2) 02/23/20 11:15 PT 9.9 sec (9.3-11.0) 02/23/20 11:30 INR 1.0 (0.9-1.1) 02/23/20 11:30 APTT 24.7 sec (21.0-31.4) 02/23/20 11:30 Sodium 139 mmol/L (136-145) 02/23/20 11:15 Potassium 3.7 mmol/L (3.5-5.1) 02/23/20 11:15 Chloride 100 mmol/L (98-107) 02/23/20 11:15 Carbon Dioxide 29.9 mmol/L (21.0-32.0) 02/23/20 11:15 Anion Gap 9.1 mmol/L (3-11) 02/23/20 11:15 BUN 16 mg/dL (7-18) 02/23/20 11:15 Creatinine 0.96 mg/dL (0.55-1.02) 02/23/20 11:15 Estimated GFR/1.73 m2 >= 60.00 (mL/min/1.73m2) 02/23/20 11:15 Glucose 168 mg/dL (74-106) H 02/23/20 11:15 Lactate 1.5 mmol/L (0.6-1.4) H 02/23/20 11:15 Calcium 9.8 mg/dL (8.5-10.1) 02/23/20 11:15 Total Bilirubin 0.4 mg/dL (0.2-1.0) 02/23/20 11:15 AST 22 U/L (15-37) 02/23/20 11:15 ALT 41 U/L (14-59) 02/23/20 11:15 Alkaline Phosphatase 93 U/L (46-116) 02/23/20 11:15 Total Protein 8.3 g/dL (6.4-8.2) H 02/23/20 11:15 Albumin 4.1 g/dL (3.4-5.0) 02/23/20 11:15 Lipase 69 U/L (73-393) 02/23/20 11:15 Urine Color Yellow (Yellow) 02/23/20 12:17 Urine Clarity Clear (Clear) 02/23/20 12:17 Urine pH 5.5 (5-8) 02/23/20 12:17 Ur Specific [place] >= 1.030 (1.005-1.025) H 02/23/20 12:17 Urine Protein Trace mg/dL (Negative) H 02/23/20 12:17 Urine Ketones Negative mg/dL (Negative) 02/23/20 12:17 Urine Blood Trace-intact (Negative) H 02/23/20 12:17 Urine Nitrite Negative (Negative) 02/23/20 12:17 Urine Bilirubin Negative (Negative) 02/23/20 12:17 Urine Urobilinogen 0.2 EU/dL (Up TO 0.2) 02/23/20 12:17 Ur Leukocyte Esterase Negative (Negative) 02/23/20 12:17 Urine RBC 0-2 HPF (0-2) 02/23/20 12:17 Urine WBC 0-2 HPF (0-5) 02/23/20 12:17 Ur Epithelial Cells Moderate HPF (Negative) 02/23/20 12:17 Urine Crystals Negative HPF (Negative) 02/23/20 12:17 Urine Bacteria Moderate HPF (Negative) 02/23/20 12:17 Urine Casts Negative LPF (Negative) 02/23/20 12:17 Urine Mucus Moderate (Negative) 02/23/20 12:17 Urine Other (Negative) 02/23/20 12:17 Ur Culture Indicated? No 02/23/20 12:17 Urine Glucose Negative mg/dL (Negative) 02/23/20 12:17 Patient ABO/Rh O Positive 02/23/20 14:08 Antibody Screen Negative 02/23/20 14:08
[2020-02-23] MEDS: Nicotine 21 MG/24 HR PATCH TD (18:38)
[2020-02-23] MEDS: Lactated Ringers 1,000 ML 125 ML IV (18:39)
[2020-02-23] MEDS: Acetaminophen 325 MG TAB 1000 MG PO (21:32)
[2020-02-23] MEDS: Gabapentin 300 MG CAP PO (21:33)
[2020-02-23] MEDS: Ketorolac 30 MG/ML VIAL IVP (21:33)
[2020-02-24 02:24] VITALS: BP 108/66; PULSE 110; RESP 18; TEMP 37.3; O2SAT 97
[2020-02-24] MEDS: traMADol 50 MG TAB PO (02:28)
[2020-02-24] MEDS: Lactated Ringers 1,000 ML 125 ML IV ×2 (02:31→11:10)
[2020-02-24 04:10] VITALS: BP 108/67; PULSE 105; RESP 17; TEMP 36.9; O2SAT 97
[2020-02-24] MEDS: Acetaminophen 325 MG TAB 1000 MG PO (04:17)
[2020-02-24] MEDS: Ketorolac 30 MG/ML VIAL IVP ×2 (04:17→10:05)
[2020-02-24] MEDS: Levothyroxine 50 MCG TAB PO (05:36)
[2020-02-24 07:47] LABS: Abs Immature Grans 0.04 k/cumm (0.0-0.09); Basophils % 0.1; Eosinophils % 0.1; HCT 39.3 % (36.0-46.0); HGB 12.8 g/dL (12.0-15.5); Immature Grans % 0.2 %; Lymphocytes % 10.4; Mean Corp. HGB Concentration 32.6 g/dL (32.0-36.0); Mean Corpuscular Hemoglobin 29.8 pg (27.0-33.0); Mean Corpuscular Volume 91.4 fL (80-95); Mean Platelet Volume 8.8 fL (8.0-11.0); Monocytes % 4.8; Neutrophils % 84.4; Platelet Count 271 x1000/uL (130-400); RBC Distribution Width 13.4 % (11.7-14.6); White Blood Cell Count 16.69 k/cumm (4.4-10.8)
[2020-02-24 07:50] VITALS: BP 118/73; PULSE 102; RESP 18; TEMP 37.1; O2SAT 98
[2020-02-24 08:00] LABS: Absolute Basophil Count 0.02 k/cumm (0.0-0.2); Absolute Eosinophil Count 0.02 k/cumm (0.0-0.7); Absolute Lymphocyte Count 1.74 k/cumm (1.2-3.4); Absolute Neutrophil Count 14.09 k/cumm (1.2-6.7)
[2020-02-24] MEDS: buPROPion-XL 150 MG TABCR 450 MG PO (08:15)
[2020-02-24] MEDS: DULoxetine 30 MG CAP 60 MG PO (08:15)
[2020-02-24] MEDS: hydroCHLOROthiazide 25 MG TAB PO (08:16)
[2020-02-24] MEDS: Omeprazole 20 MG CAPCR PO (08:16)
[2020-02-24] MEDS: Lisinopril 10 MG TAB PO (08:16)
[2020-02-24] MEDS: Nicotine 21 MG/24 HR PATCH TD (08:16)
[2020-02-24] MEDS: Methadone Liquid 10 MG/ML 5 MG PO (08:17)
[2020-02-24 08:29] LABS: COVID-19 RT-PCR UVMMC Result Negative (Negative)
--- NOTE | 2020-02-24 08:29 | NUR.NOTE ---
Nursing Note: 0828: called and reported to Amy at [facility] that pt is hospitalized for appy today. pt receives 5mg of methadone as home dosing. pt concerned that she will have an extra dose at the end of the month and doesn't want to get in to trouble with [facility]. Amy informed by this RN about surgical procedure and pt's concerns. note will be sent with pt at discharge to provide to [facility] with last dosing at [facility].
--- NOTE | 2020-02-24 08:55 | PDOC.CMIN ---
- If Service Date Differs Date of service: 02/24/20 Time of Service: 08:55 Care Management Initial Assess REASON FOR HOSPITALIZATION:: Appendicitis PAST MEDICAL HISTORY/PAST SURGICAL HISTORY:: Medical History (Updated 02/23/20 @ 14:57 by Sweta Anders DO). Acute appendicitis (Acute). Asthma (Chronic 02/08/15). Last PFT: 02/19/15 with normal FEV1/FVC of 98% predicted (pre-bronchodilator) & no bronchodilator response. Essential hypertension (Chronic 08/17/17). Fatigue (Chronic 02/08/15). Gastroesophageal reflux disease (Chronic 06/10/17). History of nephrolithiasis (Inactive 02/08/15). Most recent imaging 11/29/13: nonobstructing bilateral nephrolithiasis. Hyperlipidemia, unspecified (Chronic 02/08/15). 11/2019: increased to high intensity statin due to LDL not at goal. Hypothyroidism, unspecified (Chronic 06/02/17). IFG (impaired fasting glucose) (Inactive 02/16/18). Leiomyoma of uterus, unspecified (Chronic). Major depressive disorder, recurrent (Chronic 06/03/17). Menorrhagia with regular cycle (Chronic 11/08/15). Periodic limb movement disorder (Chronic 09/07/15). [facility] PVCs (premature ventricular contractions) (Chronic). 07/2018 ZioPatch. Substance use disorder (Chronic). EtOH, cocaine, opiates; [facility] for MAT with methadone. Tobacco use disorder (Chronic 02/08/15). Type 2 diabetes mellitus, without long-term current use of insulin (Acute). Upper airway resistance syndrome (Chronic 02/08/15). Symptoms include snoring & excessive daytime sleepiness. [facility] Surgical History . Ligation of fallopian tube (Resolved 08/25/12). Appendectomy PREVIOUS FUNCTIONAL STATUS/SOCIAL/FAMILY SUPPORTS:: Zoë lives in an apartment in [place], [place] with her henny Hernandez. She has 2 children with whom she has not communicated in many years. Zoë works intermitttently cleaning homes. She is independent at baseline. CURRENT FUNCTIONAL STATUS:: Marcie was sitting up in bed when CM met with her. She was pleasant and cooperative and agreeable to conversation. Zoë stated that she is waiting to be discharged shortly. She stated that she is feeling much better and is pain free. ADVANCE DIRECTIVES:: None on file Has patient been provided with info about the portal/API?: Yes Did the patient sign up for the portal?: Yes (previously) CODE STATUS:: Full Code INSURANCE COVERAGE / FINANCIAL ISSUES:: Medicaid CURRENT HOME/COMMUNITY SERVICES/EQUIPMENT:: receives Methadone from [facility] PRIMARY CARE PHYSICIAN:: Evelyn Coto PATIENT/FAMILY EDUCATION NEEDS:: Discharge plan, limitations, follow up plan, Ask Me Three TRANSPORTATION:: via private vehicle PLAN:: Zoë will be discharged home with no new servoces. She was provided with a last dose letter for [facility]. She will transport via private vehicle with her fiancee and follow up with her surgeon and discharge plan of care.
[2020-02-24] MEDS: Acetaminophen 500 MG TAB 1000 MG PO (10:05)
[2020-02-24] MEDS: Milk of Magnesia 30 ML CUP PO (10:05)
--- NOTE | 2020-02-24 10:06 | W.PM.DS.N ---
Date of service: 02/24/20 Time of Service: 10:06 DS: Diagnosis Discharge Diagnosis (1) Acute appendicitis: Status: Acute (2) Upper airway resistance syndrome: Status: Chronic (3) Tobacco use disorder: Status: Chronic (4) Substance use disorder: Status: Chronic (5) Menorrhagia with regular cycle: Status: Chronic (6) Hypothyroidism, unspecified: Status: Chronic (7) Hyperlipidemia, unspecified: Status: Chronic (8) History of nephrolithiasis: Status: Inactive (9) Gastroesophageal reflux disease: Status: Chronic (10) Essential hypertension: Status: Chronic (11) Asthma: Status: Chronic (12) Periodic limb movement disorder: Status: Chronic Discharge Plan Disposition Patient Disposition: HOME Condition: Good Discharge Details Chief Complaint: Nausea/Vomit/Diar Clinical Impression: Acute appendicitis Reason For Visit: APPENDICITIS Admit Date/Time: 02/23/20 14:30 Admit Provider: Sweta Anders Attending Provider: Sweta Anders Primary Care Provider: Evelyn Coto ED Provider: Paco Fitzpatrick Hospital Course Hospital Course: Patient came to the ER for abdominal pain. She was found to have acute appendicitis by radiological studies and lab work. She underwent uneventful laparoscopic appendectomy. She is admitted postop for nursing care and observation. Today she is doing well. Her pain is well controlled. She is up walking around. She is tolerating regular diet. She will be discharged home today and follow-up with me in a week in the clinic. Home Meds and New Rx's Prescriptions: New ibuprofen [Advil] 200 mg tablet 600 mg PO Q6H PRN (Reason: pain) Qty: 60 RF: 2 hydrocodone-acetaminophen [[place]] 5-325 mg tablet 1 tab PO Q6H PRN (Reason: pain (scale score 7-10)) Qty: 7 RF: 0 Continued gabapentin 300 mg capsule 300 mg PO HS Qty: 90 RF: 3 duloxetine 60 mg capsule,delayed release(DR/EC) 60 mg PO DAILY Qty: 90 RF: 3 albuterol sulfate 90 mcg/actuation HFA aerosol inhaler 1 - 2 puff IH Q4H PRN (Reason: shortness of breath or wheezing) Qty: 1 RF: 3 atorvastatin 40 mg tablet 40 mg PO DAILY Qty: 90 RF: 3 Shingrix (PF) 50 mcg/0.5 mL suspension for reconstitution 50 mcg IM .COMPLEX Qty: 1 RF: 1 (DME) blood-glucose meter Misc See Rx Instructions .ROUTE .MEDSUPPLY Qty: 1 RF: 0 (DME) lancets Misc See Rx Instructions .ROUTE .MEDSUPPLY Qty: 100 RF: 3 (DME) Blood Glucose Test Strip See Rx Instructions .ROUTE .MEDSUPPLY Qty: 100 RF: 3 aspirin 81 mg tablet,delayed release (DR/EC) 81 mg PO DAILY Qty: 90 RF: 3 metformin 1,000 mg tablet 500 mg PO DAILY Qty: 90 RF: 3 lisinopril 10 mg tablet 10 mg PO DAILY Qty: 90 RF: 3 levothyroxine 50 mcg tablet 50 mcg PO DAILY Qty: 90 RF: 3 bupropion HCl [Wellbutrin XL] 150 mg tablet extended release 24 hr 450 mg PO QAM Qty: 135 RF: 3 omeprazole 20 mg capsule,delayed release(DR/EC) 20 mg PO DAILY Qty: 90 RF: 3 hydrochlorothiazide 25 mg tablet 25 mg PO DAILY Qty: 90 RF: 3 methadone 10 mg/mL concentrate 5 mg PO DAILY RF: 0 Discharge Instructions Additional Instructions: Keep an ice bag on the incision. 20 minutes on and 20 minutes off. Ice keeps the swelling down and swelling causes pain. Make sure you wrap the ice pack in a towel and don't apply directly to the skin. -No driving until Thursday or of you are taking pain medications. -Follow-up with Dr. Anders in 1 week. -Regular diabetic diet -no straining to move bowels -pain meds are very constipating: if you do not move your bowels daily take a dose of OTC milk of magnesia -It is ok to shower. No bathe, soaking, swimming or hot tubs -Keep wound clean and dry. Wash incision with soap and water daily. Pat dry, don't rub. -You may find that your appetite is smaller. Eat 3-6 small meals throughout the day. It is important to drink lots of water after surgery, 6-10 glasses a day. -If you were given an incentive spirometry (breathing drafter apprentice?), continue to do this 10x/hour while awake. -We do want you up walking, at least 5-6 times per day. This is very important to prevent pneumonia and blood clots. You can climb stairs, take them slowly. -No lifting over 5 pounds. This is very important to avoid developing a hernia in your incision. -You may find that you are very tired after surgery- this is normal. -please do not smoke for a minimum of 72 hours after surgery. Activity:: No lifting over 10 pounds x 2 weeks. No driving for 72 hours. Okay to shower. No work for 2 weeks. Equipment/Supplies:: No Equipment Needed Diet:: Carb Counting DS: Summary Status at Discharge Functional status at discharge: independent ambulation Overall status at discharge: patient is back to baseline Mental Status: mental status grossly normal Speech and Movement: speech and movement normal Mood: congruent mood Affect: normal affect Exam Psych Mental Status: mental status grossly normal Speech and Movement: speech and movement normal Mood: congruent mood Affect: normal affect DS: Data Vitals/I&O Vitals and I&O: Vital Signs Temperature 37.1 C 02/24/20 07:50 Temperature Source Temporal Artery Scan 02/24/20 07:50 Pulse 102 H 02/24/20 07:50 Pulse Rhythm Regular 02/24/20 07:48 Respiratory Rate 18 02/24/20 07:50 Respiratory Effort Non-Labored 02/24/20 07:48 Respiratory Depth Normal 02/24/20 07:48 Respiratory Pattern Normal 02/24/20 07:48 Blood Pressure 118/73 02/24/20 07:50 Blood Pressure Mean 103 02/23/20 14:46 Blood Pressure Position Sitting 02/23/20 10:58 Pulse Oximetry 98 02/24/20 07:50 Respiratory End-tidal CO2 40 02/23/20 17:20 Oxygen Delivery Method Room Air 02/24/20 07:50 Oxygen Flow Rate 0 02/24/20 07:50 Pain Level 0 02/24/20 07:50 Intake & Output 02/23/20 02/23/20 02/24/20 11:59 23:59 11:59 Intake Total 3473.833 / 3473.833 1233.333 / 1233.333 Output Total 700 / 700 900 / 900 Balance 2773.833 / 2773.833 333.333 / 333.333 Weight 80.286 kg 80.286 kg Intake: IV 3463.833 / 3463.833 983.333 / 983.333 Oral 250 / 250 Output: Urine 700 / 700 900 / 900 Other: Urine Color Yellow Straw Urine Appearance Clear Clear Urine Odor None Comment 2 assist stand pivot tpo the comode Stool Characteristics Liquid Emesis Description Bile None Voiding Methods Bedside Commode Bedside Commode Data Completed and Pending Labs on day of discharge: Labs from last 24 hours 02/24/20 02/23/20 02/23/20 06:48 14:20 14:08 WBC 16.69 H RBC 4.30 Hgb 12.8 D Hct 39.3 MCV 91.4 MCH 29.8 MCHC 32.6 RDW 13.4 Plt Count 271 MPV 8.8 Immature Gran % 0.2 Neutrophils % 84.4 Lymphocytes % 10.4 Monocytes % 4.8 Eosinophils % 0.1 Basophils % 0.1 Absolute Neutrophils 14.09 H Absolute Lymphocytes 1.74 Absolute Monocytes 0.80 H Absolute Eosinophils 0.02 Absolute Basophils 0.02 PT INR APTT Sodium Potassium Chloride Carbon Dioxide Anion Gap BUN Creatinine Estimated GFR/1.73 m2 Glucose Lactate Calcium Total Bilirubin AST ALT Alkaline Phosphatase Total Protein Albumin Lipase Urine Color Urine Clarity Urine pH Ur Specific [place] Urine Protein Urine Ketones Urine Blood Urine Nitrite Urine Bilirubin Urine Urobilinogen Ur Leukocyte Esterase Urine RBC Urine WBC Ur Epithelial Cells Urine Crystals Urine Bacteria Urine Casts Urine Mucus Urine Other Ur Culture Indicated? Urine Glucose COVID-19 PCR Negative Nasopharyn COVID-19 PCR Not Applicable Ref Test Perform Site [facility] lab Patient ABO/Rh O Positive Antibody Screen Negative 02/23/20 02/23/20 02/23/20 12:17 11:30 11:15 WBC 17.28 H RBC 5.11 Hgb 15.4 Hct 45.5 MCV 89.0 MCH 30.1 MCHC 33.8 RDW 13.0 Plt Count 326 MPV 8.3 Immature Gran % 0.3 Neutrophils % 89.3 Lymphocytes % 8.0 Monocytes % 2.1 Eosinophils % 0.1 Basophils % 0.2 Absolute Neutrophils 15.43 H Absolute Lymphocytes 1.38 Absolute Monocytes 0.36 Absolute Eosinophils 0.02 Absolute Basophils 0.03 PT 9.9 INR 1.0 APTT 24.7 Sodium Potassium Chloride Carbon Dioxide Anion Gap BUN Creatinine Estimated GFR/1.73 m2 Glucose Lactate Calcium Total Bilirubin AST ALT Alkaline Phosphatase Total Protein Albumin Lipase Urine Color Yellow Urine Clarity Clear Urine pH 5.5 Ur Specific [place] >= 1.030 H Urine Protein Trace H Urine Ketones Negative Urine Blood Trace-intact H Urine Nitrite Negative Urine Bilirubin Negative Urine Urobilinogen 0.2 Ur Leukocyte Esterase Negative Urine RBC 0-2 Urine WBC 0-2 Ur Epithelial Cells Moderate Urine Crystals Negative Urine Bacteria Moderate Urine Casts Negative Urine Mucus Moderate Urine Other Ur Culture Indicated? No Urine Glucose Negative COVID-19 PCR Nasopharyn COVID-19 PCR Ref Test Perform Site Patient ABO/Rh Antibody Screen 02/23/20 02/23/20 11:15 11:15 WBC RBC Hgb Hct MCV MCH MCHC RDW Plt Count MPV Immature Gran % Neutrophils % Lymphocytes % Monocytes % Eosinophils % Basophils % Absolute Neutrophils Absolute Lymphocytes Absolute Monocytes Absolute Eosinophils Absolute Basophils PT INR APTT Sodium 139 Potassium 3.7 Chloride 100 Carbon Dioxide 29.9 Anion Gap 9.1 BUN 16 Creatinine 0.96 Estimated GFR/1.73 m2 >= 60.00 Glucose 168 H Lactate 1.5 H Calcium 9.8 Total Bilirubin 0.4 AST 22 ALT 41 Alkaline Phosphatase 93 Total Protein 8.3 H Albumin 4.1 Lipase 69 Urine Color Urine Clarity Urine pH Ur Specific [place] Urine Protein Urine Ketones Urine Blood Urine Nitrite Urine Bilirubin Urine Urobilinogen Ur Leukocyte Esterase Urine RBC Urine WBC Ur Epithelial Cells Urine Crystals Urine Bacteria Urine Casts Urine Mucus Urine Other Ur Culture Indicated? Urine Glucose COVID-19 PCR Nasopharyn COVID-19 PCR Ref Test Perform Site Patient ABO/Rh Antibody Screen [facility] Medical History (Updated 02/23/20 @ 15:44 by KIRA Woods) Acute appendicitis (Acute) Asthma (Chronic 02/08/15) Last PFT: 02/19/15 with normal FEV1/FVC of 98% predicted (pre-bronchodilator) & no bronchodilator response Essential hypertension (Chronic 08/17/17) Fatigue (Chronic 02/08/15) Gastroesophageal reflux disease (Chronic 06/10/17) History of nephrolithiasis (Inactive 02/08/15) Most recent imaging 11/29/13: nonobstructing bilateral nephrolithiasis Hyperlipidemia, unspecified (Chronic 02/08/15) 11/2019: increased to high intensity statin due to LDL not at goal Hypothyroidism, unspecified (Chronic 06/02/17) IFG (impaired fasting glucose) (Inactive 02/16/18) Leiomyoma of uterus, unspecified (Chronic) Major depressive disorder, recurrent (Chronic 06/03/17) Menorrhagia with regular cycle (Chronic 11/08/15) Periodic limb movement disorder (Chronic 09/07/15) [facility] PVCs (premature ventricular contractions) (Chronic) 07/2018 ZioPatch Substance use disorder (Chronic) EtOH, cocaine, opiates; [facility] for MAT with methadone Tobacco use disorder (Chronic 02/08/15) Type 2 diabetes mellitus, without long-term current use of insulin (Acute) Upper airway resistance syndrome (Chronic 02/08/15) Symptoms include snoring & excessive daytime sleepiness. [facility] Surgical History Ligation of fallopian tube (Resolved 08/25/12) Family History Mother Breast cancer Father Diabetes Mental disorder anxiety Grandfather , stomach CA Neoplasm Grandmother Diabetes Alcohol abuse Heart disease Sister , Lung CA Neoplasm Throat CA (smoker) Lung cancer Social History Smoking/Tobacco Use Status: Current every day Alcohol Intake: former Drug use: Current Sobriety Substance use type: does not use Caregiver/Support person: No Household members: significant other Number of Children: 2 Communication Needs: None current occupation: House cleaning Pets and animals: No Sexually active: Yes Current gender identity: female What type of physical activity do you participate in: none Seatbelt use: always Helmet use: Yes Do you feel safe at home: Yes Do you feel safe in your relationship?: Yes
--- NOTE | 2020-02-24 10:15 | W.PM.PROGNOT ---
Date of Service Date of service: 02/24/20 Time of Service: 10:15 Assessment and Plan Assessment and plan (1) Acute appendicitis: Status: Acute Assessment and plan: s/p lap appy plan d/c home d/w pt wound care/activity adn warning signs. F/u in office next Thursday Keep an ice bag on the incision. 20 minutes on and 20 minutes off. Ice keeps the swelling down and swelling causes pain. Make sure you wrap the ice pack in a towel and don't apply directly to the skin. -No driving x1 week or of you are taking pain medications. -If you have victoriano or sutures in place, they will be removed at your clinic appointment in 7-10 days. -Do Not remove any steri tapes (white tapes) that cover the incision. If you have steri-tapes on your incision, do not use antibacterial ointment. -Follow-up with Dr. Anders in 1 week. -soft diet: No beef/pork raw vegetables x1 -week. Cooked vegetables are fine -no straining to move bowels -pain meds are very constipating: if you do not move your bowels daily take a dose of OTC milk of magnesia -It is ok to shower. No bathe, soaking, swimming or hot tubs -Keep wound clean and dry. Wash incision with soap and water daily. Pat dry, don't rub. -If you do not have steri-tapes on your incision, than keep the wound covered with a gauze and antibacterial ointment. -Protein supplements daily. You may find that your appetite is smaller. Eat 3-6 small meals throughout the day. It is important to drink lots of water after surgery, 6-10 glasses a day. -If you were given an incentive spirometry (breathing accounting instructor?), continue to do this 10x/hour while awake. -We do want you up walking, at least 5-6 times per day. This is very important to prevent pneumonia and blood clots. You can climb stairs, take them slowly. -No lifting over 5 pounds. This is very important to avoid developing a hernia in your incision. -You may find that you are very tired after surgery- this is normal. -please do not smoke for a minimum of 72 hours after surgery. Subjective Subjective Interval history since last seen: Pt is doing well. no headaches. No CP or SOB. no productive cough. no dysuria. no leg pain or swelling. She is up walking around. She is tolerating clears. Her pain is well controlled. Exam Resp Effort & Inspection: normal respiratory effort and able to speak in complete sentences Auscultation: clear to auscultation bilaterally GI Inspection: normal to inspection Palpation: soft Auscultation: normal bowel sounds Other: incision c/d/i. Extrem General: no clubbing, cyanosis or edema Objective Objective Clinical Data: Abnormal lab results 02/23/20 02/23/20 02/23/20 Range/Units 11:15 11:15 11:15 WBC 17.28 H (4.4-10.8) k/cumm Absolute Neutrophils 15.43 H (1.2-6.7) k/cumm Absolute Monocytes (0.11-0.7) k/cumm Glucose 168 H (74-106) mg/dL Lactate 1.5 H (0.6-1.4) mmol/L Total Protein 8.3 H (6.4-8.2) g/dL Ur Specific [place] (1.005-1.025) Urine Protein (Negative) mg/dL Urine Blood (Negative) 02/23/20 02/24/20 Range/Units 12:17 06:48 WBC 16.69 H (4.4-10.8) k/cumm Absolute Neutrophils 14.09 H (1.2-6.7) k/cumm Absolute Monocytes 0.80 H (0.11-0.7) k/cumm Glucose (74-106) mg/dL Lactate (0.6-1.4) mmol/L Total Protein (6.4-8.2) g/dL Ur Specific [place] >= 1.030 H (1.005-1.025) Urine Protein Trace H (Negative) mg/dL Urine Blood Trace-intact H (Negative) Vital Signs Temperature 37.1 C 02/24/20 07:50 Temperature Source Temporal Artery Scan 02/24/20 07:50 Pulse 102 H 02/24/20 07:50 Pulse Rhythm Regular 02/24/20 07:48 Respiratory Rate 18 02/24/20 07:50 Respiratory Effort Non-Labored 02/24/20 07:48 Respiratory Depth Normal 02/24/20 07:48 Respiratory Pattern Normal 02/24/20 07:48 Blood Pressure 118/73 02/24/20 07:50 Blood Pressure Mean 103 02/23/20 14:46 Blood Pressure Position Sitting 02/23/20 10:58 Pulse Oximetry 98 02/24/20 07:50 Respiratory End-tidal CO2 40 02/23/20 17:20 Oxygen Delivery Method Room Air 02/24/20 07:50 Oxygen Flow Rate 0 02/24/20 07:50 Pain Level 1 02/24/20 10:05 Intake & Output 02/23/20 02/23/20 02/24/20 11:59 23:59 11:59 Intake Total 3473.833 / 3473.833 1233.333 / 1233.333 Output Total 700 / 700 900 / 900 Balance 2773.833 / 2773.833 333.333 / 333.333 Weight 80.286 kg 80.286 kg Intake: IV 3463.833 / 3463.833 983.333 / 983.333 Oral 250 / 250 Output: Urine 700 / 700 900 / 900 Other: Urine Color Yellow Straw Urine Appearance Clear Clear Urine Odor None Comment 2 assist stand pivot tpo the comode Pt voided on toilet X1, per patient Stool Characteristics Liquid Emesis Description Bile None Voiding Methods Bedside Commode Toilet Laboratory Results WBC 16.69 k/cumm (4.4-10.8) H 02/24/20 06:48 RBC 4.30 m/cumm (4.00-5.20) 02/24/20 06:48 Hgb 12.8 g/dL (12.0-15.5) D 02/24/20 06:48 Hct 39.3 % (36.0-46.0) 02/24/20 06:48 MCV 91.4 fL (80-95) 02/24/20 06:48 MCH 29.8 pg (27.0-33.0) 02/24/20 06:48 MCHC 32.6 g/dL (32.0-36.0) 02/24/20 06:48 RDW 13.4 % (11.7-14.6) 02/24/20 06:48 Plt Count 271 x1000/uL (130-400) 02/24/20 06:48 MPV 8.8 fL (8.0-11.0) 02/24/20 06:48 Immature Gran % 0.2 % 02/24/20 06:48 Neutrophils % 84.4 02/24/20 06:48 Lymphocytes % 10.4 02/24/20 06:48 Monocytes % 4.8 02/24/20 06:48 Eosinophils % 0.1 02/24/20 06:48 Basophils % 0.1 02/24/20 06:48 Absolute Neutrophils 14.09 k/cumm (1.2-6.7) H 02/24/20 06:48 Absolute Lymphocytes 1.74 k/cumm (1.2-3.4) 02/24/20 06:48 Absolute Monocytes 0.80 k/cumm (0.11-0.7) H 02/24/20 06:48 Absolute Eosinophils 0.02 k/cumm (0.0-0.7) 02/24/20 06:48 Absolute Basophils 0.02 k/cumm (0.0-0.2) 02/24/20 06:48 PT 9.9 sec (9.3-11.0) 02/23/20 11:30 INR 1.0 (0.9-1.1) 02/23/20 11:30 APTT 24.7 sec (21.0-31.4) 02/23/20 11:30 Sodium 139 mmol/L (136-145) 02/23/20 11:15 Potassium 3.7 mmol/L (3.5-5.1) 02/23/20 11:15 Chloride 100 mmol/L (98-107) 02/23/20 11:15 Carbon Dioxide 29.9 mmol/L (21.0-32.0) 02/23/20 11:15 Anion Gap 9.1 mmol/L (3-11) 02/23/20 11:15 BUN 16 mg/dL (7-18) 02/23/20 11:15 Creatinine 0.96 mg/dL (0.55-1.02) 02/23/20 11:15 Estimated GFR/1.73 m2 >= 60.00 (mL/min/1.73m2) 02/23/20 11:15 Glucose 168 mg/dL (74-106) H 02/23/20 11:15 Lactate 1.5 mmol/L (0.6-1.4) H 02/23/20 11:15 Calcium 9.8 mg/dL (8.5-10.1) 02/23/20 11:15 Total Bilirubin 0.4 mg/dL (0.2-1.0) 02/23/20 11:15 AST 22 U/L (15-37) 02/23/20 11:15 ALT 41 U/L (14-59) 02/23/20 11:15 Alkaline Phosphatase 93 U/L (46-116) 02/23/20 11:15 Total Protein 8.3 g/dL (6.4-8.2) H 02/23/20 11:15 Albumin 4.1 g/dL (3.4-5.0) 02/23/20 11:15 Lipase 69 U/L (73-393) 02/23/20 11:15 Urine Color Yellow (Yellow) 02/23/20 12:17 Urine Clarity Clear (Clear) 02/23/20 12:17 Urine pH 5.5 (5-8) 02/23/20 12:17 Ur Specific [place] >= 1.030 (1.005-1.025) H 02/23/20 12:17 Urine Protein Trace mg/dL (Negative) H 02/23/20 12:17 Urine Ketones Negative mg/dL (Negative) 02/23/20 12:17 Urine Blood Trace-intact (Negative) H 02/23/20 12:17 Urine Nitrite Negative (Negative) 02/23/20 12:17 Urine Bilirubin Negative (Negative) 02/23/20 12:17 Urine Urobilinogen 0.2 EU/dL (Up TO 0.2) 02/23/20 12:17 Ur Leukocyte Esterase Negative (Negative) 02/23/20 12:17 Urine RBC 0-2 HPF (0-2) 02/23/20 12:17 Urine WBC 0-2 HPF (0-5) 02/23/20 12:17 Ur Epithelial Cells Moderate HPF (Negative) 02/23/20 12:17 Urine Crystals Negative HPF (Negative) 02/23/20 12:17 Urine Bacteria Moderate HPF (Negative) 02/23/20 12:17 Urine Casts Negative LPF (Negative) 02/23/20 12:17 Urine Mucus Moderate (Negative) 02/23/20 12:17 Urine Other (Negative) 02/23/20 12:17 Ur Culture Indicated? No 02/23/20 12:17 Urine Glucose Negative mg/dL (Negative) 02/23/20 12:17 COVID-19 PCR Negative (Negative) 02/23/20 14:20 Nasopharyn COVID-19 PCR Not Applicable 02/23/20 14:20 Ref Test [facility] 02/23/20 14:20 Patient ABO/Rh O Positive 02/23/20 14:08 Antibody Screen Negative 02/23/20 14:08
[2020-02-24 11:52] VITALS: BP 114/71; PULSE 97; RESP 18; TEMP 36.8; O2SAT 96
--- NOTE | 2020-02-24 15:09 | CHAPLAIN ---
Zoë told me about her appendectomy, and she expects to be discharged later today. I explained my role and offered suppport.
--- NOTE | 2020-02-24 18:47 | PDOC.CMDIS ---
- If Service Date Differs Date of service: 02/24/20 Time of Service: 18:47 LACE Index Scoring Tool - Questions: Length of Stay (in days): 1 Acuity (Admit via E.D.?): Yes Comorbidities: Diabetes w/o Complication E.D. Visits: 1 - Answers: Total Score: 6 Risk of Readmission: Low Risk Care Management Discharge Reason for Hospitalization: Appendicitis Discharge Plan: Zoë will be discharged home with no new servoces. She was provided with a last dose letter for [facility]. She will transport via private vehicle with her fiancee and follow up with her surgeon and discharge plan of care. Patient/Family Education Needs: Discharge plan, limitations, Ask Me Three
== END 2020-02-24 12:40 | disposition home or self-care (01) ==
LOC: ER 14:34 → DSU 15:44 → ER 17:34 → MS 02-24 01:43
PROVIDERS: Admitting Provider Surgery; Emergency Provider Physician Assistant; PCP Nurse Practitioner Family; Visit Provider Surgery
PROC: 0DTJ4ZZ Resection of Appendix, Percutaneous Endoscopic Approach (ICD-10-PCS; CPT 44970; principal; 2020-02-23 15:30)
DX: K35.80 Unspecified acute appendicitis (principal); I10 Essential (primary) hypertension; K21.9 Gastro-esophageal reflux disease without esophagitis; E78.5 Hyperlipidemia, unspecified; E03.9 Hypothyroidism, unspecified; F17.210 Nicotine dependence, cigarettes, uncomplicated; E11.9 Type 2 diabetes mellitus without complications; R53.82 Chronic fatigue, unspecified; I49.3 Ventricular premature depolarization; F33.40 Major depressive disorder, recurrent, in remission, unspecified; J45.20 Mild intermittent asthma, uncomplicated; Z72.89 Other problems related to lifestyle; F14.90 Cocaine use, unspecified, uncomplicated; F11.90 Opioid use, unspecified, uncomplicated; Z11.59 Encounter for screening for other viral diseases
CPT/HCPCS: 44970; 36415; 80053; 83690; 86850; 86900; 86901; 96361; 96365; 96375; 99222; 99238; 99285; NC; U0003; 74177; 81003; 81015; 83605; 85025; 85610; 85730; 88304; G0378; J0131; J1100; J1885; J1956; J2001; J2405; J2704; J2765

== ENCOUNTER 2020-03-09 19:11 | Outpatient (REF) | payer MEDICAID, SELFPAY ==
[2020-03-09 22:03] LABS: Microalb ug/mg Crea 10.1 ug/mg Cr
== END 2020-03-09 19:31 ==
LOC: LBN 19:11
PROVIDERS: PCP Nurse Practitioner Family; Visit Provider Nurse Practitioner Family
DX: E11.9 Type 2 diabetes mellitus without complications (principal)
CPT/HCPCS: 82043; 82570

== ENCOUNTER 2020-06-01 08:43 | Outpatient (CLI) | payer MEDICAID, SELFPAY ==
[2020-06-03 23:34] LABS: Patient Race White; SARS-CoV-2 RNA Undetected (Undetected); SARS-CoV-2 Specimen Source Nasal
== END 2020-06-01 09:03 ==
PROVIDERS: PCP Nurse Practitioner Family; Visit Provider Nurse Practitioner Family
DX: R68.89 Other general symptoms and signs (principal)
CPT/HCPCS: U0003

== ENCOUNTER 2020-10-19 03:33 | Outpatient (CLI) | payer MEDICAID, SELFPAY ==
[2020-10-19 09:59] LABS: TSH (W/Ref FT4) 1.19 uIU/mL (0.36-3.74); Vitamin B12 422 pg/mL (193-986)
== END 2020-10-19 03:34 | disposition home or self-care (01) ==
LOC: LBO 03:33
PROVIDERS: PCP Nurse Practitioner Family; Visit Provider Nurse Practitioner Family
DX: E03.9 Hypothyroidism, unspecified (principal); R41.3 Other amnesia
CPT/HCPCS: 36415; 82607; 84443

== ENCOUNTER 2020-11-19 02:18 | Outpatient (CLI) | payer MEDICAID, SELFPAY ==
--- NOTE | 2020-11-19 06:45 | DI.MRI_ITS ---
EXAM: MR BRAIN WO CLINICAL HISTORY: Memory impairment ?structural abnormality of brain,R41.3 TECHNIQUE: Multiplanar multisequence MRI of the brain was performed. COMPARISON: No exams were available for comparison FINDINGS: CEREBRAL PARENCHYMA: There is no evidence of intracranial hemorrhage, mass effect, or shift of midline structures. There are no extra-axial fluid collections. Ventricles are not enlarged or shifted. There is no significant focal signal abnormality in the cerebellar hemispheres nor within the sana, m idbrain, and thalami. There are few nonspecific sub cm foci of signal abnormality in the periventricular white matter, not associated with hemorrhage or surrounding edema nor abnormal signal on diffusion imaging. There is no significant focal signal abnormality evident on diffusion imaging to suggest acute ischem ic event. PITUITARY GLAND: No mass nor parasellar abnormality. No obvious abnormality in the cavernous sinuses. FLOW VOIDS: The expected flow void are noted. No evidence of obvious aneurysm nor obvious vascular ma lformation. PARANASAL SINUSES: The visualized paranasal sinuses appear unremarkable. No obvious finding ORBITS: No obvious findings. IMPRESSION: There a few bilateral subcentimeter nonspecific white matter signal foci, not associated with hemorrh age, surrounding edema, nor abnormal signal on diffusion imaging. May be related nonacute ischemic c hanges. There also foci of signal abnormality in the right side of the midbrain which are probably exaggerate d vascular spaces. Recommend follow-up MRI in 6 months to ensure stability. DATA REPOSITORY:
== END 2020-11-19 02:38 ==
PROVIDERS: PCP Nurse Practitioner Family; Visit Provider Nurse Practitioner Family
DX: R41.3 Other amnesia (principal); R90.82 White matter disease, unspecified
CPT/HCPCS: 70551

== ENCOUNTER 2021-03-21 03:19 | Outpatient (CLI) | payer MEDICAID, SELFPAY ==
--- NOTE | 2021-03-21 07:15 | DI.CTLCSR_ITS ---
Exam(s) CT CHEST LUNG CANCER SCREEN EXAM: CT CHEST LUNG CANCER SCREEN CLINICAL HISTORY: Screening for lung cancer,CURRENT SMOKER, F17.210,Z12.2 TECHNIQUE: Imaging Protocol: Axial computed tomography images with coronal and sagittal reformatted images were created and reviewed COMPARISON: CT RENAL COLIC WO CONTRAST from 04/03/2010 CT RENAL COLIC WO CONTRAST from 03/25/2013 CT RENAL COLIC WO CONTRAST from 03/25/2013 CT RENAL COLIC WO CONTRAST from 11/29/2013 FINDINGS: Tracheobronchial tree: Patent where visualized. Mediastinum and Tierney: No dominant adenopathy or fluid collection. Upper abdomen: Unremarkable. Soft Tissues: Unremarkable. Bones: Within normal limits. Pulmonary parenchyma: No consolidation or dominant measurable mass. Mild scarring in the left lingula and right middle lobe. Lung Nodules: None. Pleura: No effusion or pneumothorax. Heart: The heart is not dilated. No coronary artery calcifications are seen. No pericardial effusion. Aorta: Thoracic aorta non-dilated.Atherosclerosis. IMPRESSION: No pulmonary nodules. Lung RADS Cat 1 - Negative: No nodules and definitely benign nodules Lung-RADS 1.0 CATEGORIES: Category 0 - Prior chest CT exam(s) being located for comparison. Category 1 - Annual screening in 12 months. No nodules or definitely benign nodules. Category 2 - Annual screening in 12 months. Benign appearance. Nodules with low likelihood of becomin g active cancer. Category 3 - 6-month follow-up. Probably benign. Short-term follow-up suggested. Nodules with low lik elihood of becoming active cancer. Category 4A - 3-month follow-up and CT/PET if >8 mm in size. Suspicious finding. Findings which requi re additional testing. Category 4B - Findings which require additional testing and tissue sampling. Suspicious finding. Modifier S- Potentially clinically significant finding. (Non lung cancer) RADIATION DOSE DELIVERED: 76.42mGy.cm Total DLP 1.84mGy CTDIvol 76.42mGy.cm Total DLP 1.84mGy CTDIvol DATA REPOSITORY: All CT scans at this facility are submitted to the National Radiology Data Registry (NRDR) Dose Index Registry (DIR) with the [employer] (ACR). RADIATION OPTIMIZATION: All CT scans at this facility use at least one of these dose optimization te chniques: automated exposure control; mA and/or kV adjustment per patient size (includes targeted exa ms where dose is matched to clinical indication); or iterative reconstruction.
--- NOTE | 2021-03-21 07:15 | DI.MAMMO_ITS ---
Exam(s) MAMMO SCREENING EXAM: MAMMO SCREENING CLINICAL HISTORY: screening,Z12.39 TECHNIQUE: Bilateral full field digital CC and MLO mammographic images were obtained with 3D tomosyn thesis and utilizing computer aided detection (CAD). COMPARISON: Available for comparison. FINDINGS: Masses/Architectural Distortion: None seen. Microcalcifications: No suspicious pleomorphic-type are seen. Skin Thickening/Nipple Retraction: None. IMPRESSION: 1. No significant interval change with no specific features of malignancy noted. 2. Unless there is more urgent need, screening mammography is recommended, as per [employer] guidelines. BI-RADS Category 1 - Negative Breast Density - Category B - Scattered areas of fibroglandular density Breast density category C or D implies that the patient has dense breast tissue. Dense breast tissue is very common and is not abnormal but dense breast tissue can make it harder to find cancer on a ma mmogram. Also, dense breast tissue may increase their breast cancer risk. This information about the result of the mammogram report was provided to the patient to raise their awareness. Use this report when you speak with the patient about their risks for breast cancer, which includes their family hist ory. At that time, you may recommend for more screening tests (Ultrasound or MRI) as they might be us eful based on their risk. A negative radiographic report should not delay biopsy if a dominant or clinically suspicious mass is present. Up to ten percent of cancers are not identified on mammography. A negative report may reinforce clinical impression. Adenosis and dense breasts may obscure an underlying neoplasm. False positive reports average 6 to 10%. Patient will receive a letter notifying them of these results.
== END 2021-03-21 03:39 ==
PROVIDERS: PCP Nurse Practitioner Family; Visit Provider Nurse Practitioner Family
DX: Z12.2 Encounter for screening for malignant neoplasm of respiratory organs; Z12.31 Encounter for screening mammogram for malignant neoplasm of breast; F17.210 Nicotine dependence, cigarettes, uncomplicated
CPT/HCPCS: 71271; 77063; 77067

== ENCOUNTER 2021-09-25 01:48 | Outpatient (CLI) | payer MEDICAID, SELFPAY ==
--- NOTE | 2021-09-25 07:30 | DI.MRI_ITS ---
Exam(s) MR BRAIN WO EXAM: MR BRAIN WO CLINICAL HISTORY: 6 mo repeat brain MRI,F/U R90.89 TECHNIQUE: Multiplanar multisequence MRI of the brain was performed. COMPARISON: MR MR BRAIN WO from 11/19/2020 FINDINGS: VENTRICLES AND EXTRA AXIAL SPACES: Normal in size and morphology for the patient's age. MIDLINE SHIFT: None. CEREBRAL PARENCHYMA: No focus of restricted diffusion to suggest acute infarct. No space-occupying le td identified. There are stable foci of hyperintense signal on the T2 and FLAIR images in the white matter. No new foci are seen. HEMORRHAGE: None. BRAINSTEM/CEREBELLUM: Normal. CALVARIUM: Normal. VISUALIZED PARANASAL SINUSES/MASTOIDS:Clear. [place]: Normal flow void. PITUITARY GLAND: Unremarkable. OTHER FINDINGS: None. IMPRESSION: Stable white matter lesions. Recommend follow-up MRI in 6-12 months to document stability. DATA REPOSITORY:
== END 2021-09-25 02:08 ==
PROVIDERS: Visit Provider Nurse Practitioner Adult Health
DX: R90.89 Other abnormal findings on diagnostic imaging of central nervous system (principal); R90.82 White matter disease, unspecified
CPT/HCPCS: 70551

== ENCOUNTER 2021-10-24 20:25 | Outpatient (REF) | payer MEDICAID, SELFPAY ==
[2021-10-24 21:28] LABS: Hemoglobin A1C 6.3 % (<5.7)
[2021-10-24 21:31] LABS: ALT 35 U/L (14-59); AST 22 U/L (15-37); Albumin 3.7 g/dL (3.4-5.0); Alkaline Phosphatase 103 U/L (46-116); Anion Gap 10.2 mmol/L (3-11); BUN 17 mg/dL (7-18); Bilirubin, Total 0.3 mg/dL (0.2-1.0); CO2 28.8 mmol/L (21.0-32.0); CREATININE 1.4 mg/dL (0.55-1.02); Calcium 9.1 mg/dL (8.5-10.1); Chloride 101 mmol/L (98-107); Glucose 142 mg/dL (74-106); Potassium 3.8 mmol/L (3.5-5.1); Sodium 140 mmol/L (136-145); Total Protein 7.2 g/dL (6.4-8.2)
[2021-10-24 21:48] LABS: Vitamin D 25 Total 10.5 ng/mL (30-100)
== END 2021-10-24 20:26 | disposition home or self-care (01) ==
LOC: NCHCN 20:25
PROVIDERS: Visit Provider Nurse Practitioner Family
DX: R53.83 Other fatigue (principal); R41.3 Other amnesia
CPT/HCPCS: 80053; 82306; 83036

== ENCOUNTER 2022-03-10 03:50 | Outpatient (CLI) | payer MEDICAID, SELFPAY ==
[2022-03-10 08:03] LABS: Abs Immature Grans 0.03 10^3/uL (0.0-0.06); Absolute Basophil Count 0.08 10^3/uL (0.0-0.2); Absolute Eosinophil Count 0.51 10^3/uL (0.0-0.7); Absolute Lymphocyte Count 1.91 10^3/uL (1.2-3.4); Absolute Monocyte Count 0.53 10^3/uL (0.1-0.8); Absolute Neutrophil Count 6.09 10^3/uL (1.2-6.7); Basophils % 0.9; Eosinophils % 5.6; HCT 41.7 % (36.0-46.0); HGB 13.9 g/dL (11.2-15.7); Immature Grans % 0.3; Lymphocytes % 20.9; MCH 29.9 pg (27.0-33.0); MCHC 33.3 % (32.0-36.0); MCV 90 fL (80-95); MPV 8.2 fL (8.0-11.0); Monocytes % 5.8; Neutrophils % 66.5; Platelet Count 291 10^3/uL (130-400); RBC 4.65 10^6/uL (3.93-5.22); RDW 12.6 % (11.7-14.6); RDW-SD 41.8 fL; WBC 9.15 10^3/uL (4.4-10.8)
[2022-03-10 08:57] LABS: ALT 28 U/L (14-59); AST 23 U/L (15-37); Albumin 3.6 g/dL (3.4-5.0); Alkaline Phosphatase 90 U/L (46-116); Anion Gap 7.2 mmol/L (3-11); BUN 17 mg/dL (7-18); Bilirubin, Total 0.4 mg/dL (0.2-1.0); CO2 31.8 mmol/L (21.0-32.0); CREATININE 1.3 mg/dL (0.55-1.02); Calcium 9.2 mg/dL (8.5-10.1); Calculated LDL 78 mg/dL (<100); Chloride 101 mmol/L (98-107); Cholesterol 189 mg/dL (<200); Estimated GFR 42.37 (mL/min/1.73m2); Ferritin 70 ng/mL (8-252); Glucose 111 mg/dL (74-106); HDL Cholesterol 54 mg/dL (40-60); Potassium 3.8 mmol/L (3.5-5.1); Sodium 140 mmol/L (136-145); TSH (W/Ref FT4) 1.41 uIU/mL (0.36-3.74); Total Protein 7.3 g/dL (6.4-8.2); Triglyceride 288 mg/dL (<150)
[2022-03-10 09:03] LABS: Hemoglobin A1C 6.3 % (<5.7)
[2022-03-10 09:04] LABS: COMMENT (LAB VIEW ONLY) 190.69 mg/dL; Microalb ug/mg Crea 5.6 ug/mg Cr
[2022-03-10 09:07] LABS: Iron 59 ug/dL (50-170); Total Iron Binding Capacity 331 ug/dL (250-450); Transferrin Sat 18 % (15-50)
[2022-03-13 05:50] LABS: Vitamin D 25 Total 35.9 ng/mL (30-100)
== END 2022-03-10 03:51 | disposition home or self-care (01) ==
LOC: LBO 03:50
PROVIDERS: Nurse Practitioner Family; PCP Nurse Practitioner Family; Visit Provider Nurse Practitioner Family
DX: E03.9 Hypothyroidism, unspecified (principal); E78.5 Hyperlipidemia, unspecified; E11.9 Type 2 diabetes mellitus without complications; Z51.81 Encounter for therapeutic drug level monitoring; G47.61 Periodic limb movement disorder
CPT/HCPCS: 36415; 80053; 80061; 82306; 82043; 82570; 82728; 83036; 83540; 83550; 84443; 85025

== ENCOUNTER → 2022-03-25 01:07 | Outpatient (CLI) | payer MEDICAID, SELFPAY ==
--- NOTE | 2022-03-25 | DI.CTLCSR_ITS ---
Exam(s) CT CHEST LUNG CANCER SCREEN EXAM: CT CHEST LUNG CANCER SCREEN CLINICAL HISTORY: SCREENING FOR LUNG CA,CURRENT SMOKER, F17.210. TECHNIQUE: Imaging Protocol: Low Dose Technique CONTRAST MATERIAL: None COMPARISON: CT CT CHEST LUNG CANCER SCREEN from 03/21/2021 FINDINGS: CHEST: LUNGS: There are no ominous pulmonary nodules. Mild increased markings in the posterior basal segment both lower lobes appears unchanged. No new ominous pulmonary nodules. There are no pleural effusio ns. MEDIASTINUM: There is no obvious hilar nor mediastinal adenopathy. CARDIAC: Heart size is normal. There is no pericardial effusion.Caliber of the thoracic aorta is wit hin normal limits. OTHER: OSSEOUS: No significant osseous lesions.. IMPRESSION: 1. No significant pulmonary nodules. Stable benign-appearing increased markings in lung bases as jostin cribed above. No pleural effusions 2. No obvious intrathoracic adenopathy 3. Lung RADS Cat 1 - Negative: No nodules and definitely benign nodules Lung-RADS 1.0 CATEGORIES: Category 0 - Prior chest CT exam(s) being located for comparison. Category 1 - Annual screening in 12 months. No nodules or definitely benign nodules. Category 2 - Annual screening in 12 months. Benign appearance. Nodules with low likelihood of becomin g active cancer. Category 3 - 6-month follow-up. Probably benign. Short-term follow-up suggested. Nodules with low lik elihood of becoming active cancer. Category 4A - 3-month follow-up and CT/PET if >8 mm in size. Suspicious finding. Findings which requi re additional testing. Category 4B - Findings which require additional testing and tissue sampling. Category 4X - Category 3 or 4 nodules with additional features or imaging findings that increases the suspicion of malignancy. Modifier S- Potentially clinically significant findings (non lung cancer) RADIATION DOSE DELIVERED: 78.45mGy.cm Total DLP 1.84mGy CTDIvol DATA REPOSITORY: All CT scans at this facility are submitted to the National Radiology Data Registry (NRDR) Dose Index Registry (DIR) with the [employer] (ACR). RADIATION OPTIMIZATION: All CT scans at this facility use at least one of these dose optimization te chniques: automated exposure control; mA and/or kV adjustment per patient size (includes targeted exa ms where dose is matched to clinical indication); or iterative reconstruction.
== END ==
PROVIDERS: Visit Provider Nurse Practitioner Family
DX: Z12.2 Encounter for screening for malignant neoplasm of respiratory organs (principal); F17.210 Nicotine dependence, cigarettes, uncomplicated
CPT/HCPCS: 71271

== ENCOUNTER 2022-04-08 18:05 | Outpatient (REF) | payer MEDICAID, SELFPAY ==
[2022-04-08 15:59] LABS: Anion Gap 7.8 mmol/L (3-11); BUN 12 mg/dL (7-18); CO2 29.2 mmol/L (21.0-32.0); CREATININE 1.2 mg/dL (0.55-1.02); Calcium 9.1 mg/dL (8.5-10.1); Chloride 103 mmol/L (98-107); Estimated GFR 53.13 (mL/min/1.73m2); Glucose 100 mg/dL (74-106); Potassium 4.2 mmol/L (3.5-5.1); Sodium 140 mmol/L (136-145)
== END 2022-04-08 18:06 | disposition home or self-care (01) ==
LOC: NCHCN 18:05
PROVIDERS: PCP Nurse Practitioner Family; Visit Provider Nurse Practitioner Family
DX: R79.89 Other specified abnormal findings of blood chemistry (principal)
CPT/HCPCS: 80048

== ENCOUNTER 2022-09-04 15:15 | Outpatient (REF) | payer MEDICAID, SELFPAY ==
[2022-09-04 15:11] LABS: Anion Gap 7.7 mmol/L (3-11); BUN 16 mg/dL (7-18); CO2 28.3 mmol/L (21.0-32.0); CREATININE 1.3 mg/dL (0.55-1.02); Calcium 9.7 mg/dL (8.5-10.1); Chloride 104 mmol/L (98-107); Estimated GFR 47.96 (mL/min/1.73m2); Glucose 174 mg/dL (74-106); Potassium 4.1 mmol/L (3.5-5.1); Sodium 140 mmol/L (136-145)
[2022-09-04 16:05] LABS: Hemoglobin A1C 6.5 % (<5.7)
[2022-09-05 09:27] LABS: TSH 1.33 uIU/mL (0.36-3.74)
== END 2022-09-04 15:16 | disposition home or self-care (01) ==
LOC: NCHCN 15:15
PROVIDERS: PCP Nurse Practitioner Family; Visit Provider Nurse Practitioner Family
DX: I10 Essential (primary) hypertension (principal); E11.9 Type 2 diabetes mellitus without complications
CPT/HCPCS: 80048; 83036; 84443

== ENCOUNTER 2022-09-16 04:38 | Outpatient (CLI) | payer MEDICAID, SELFPAY ==
[2022-09-16] MEDS: Methacholine 100 MG VIAL IH (14:35)
[2022-09-16] MEDS: Albuterol HFA 18 GM 200 PUFF INH IH (14:35)
[2022-09-16] MEDS: Inhaler, Assist Device 1 EACH MC (14:36)
--- NOTE | 2022-09-17 07:12 | W.PFT ---
Date of service: 09/16/22 Time of Service: 13:00 Pulmonary Function Test Result Requesting Provider Susy Tinajero Indications: Dyspnea on exertion Interpretation Spirometry: There is no airflow limitation at baseline. The FVC is low which may reflect pseudo obstruction from an elevated BMI. There was a 20% decreased in FEV1% with administration of 8mg/mL methacholine. Lung Volumes: There is air trapping Diffusion Capacity: Normal diffusion. Airway Pressure: Normal airways resistance. Impression Air trapping with normal baseline pulmonary function. There is a positive methacholine challenge test. Clinical Correlation therefore is recommended.
== END 2022-09-16 04:39 | disposition home or self-care (01) ==
LOC: RT 04:38
PROVIDERS: PCP Nurse Practitioner Family; Visit Provider Nurse Practitioner Family
DX: R06.09 Other forms of dyspnea (principal); J45.909 Unspecified asthma, uncomplicated; F17.210 Nicotine dependence, cigarettes, uncomplicated
CPT/HCPCS: 94060; 94070; 94726; 94729; 94010; J7674

== ENCOUNTER 2022-12-09 11:11 | Emergency (ER) | payer MEDICAID, SELFPAY ==
[2022-12-09 11:13] VITALS: PULSE 105; RESP 18; TEMP 36.7; O2SAT 97
[2022-12-09 11:15] VITALS: BP 140/82
--- NOTE | 2022-12-09 12:00 | DI.RAD_ITS ---
Exam(s) XR WRIST RT COMPL NAVICULAR EXAM: XR WRIST RT COMPL NAVICULAR CLINICAL HISTORY: fall/ trauma. TECHNIQUE: 2D digital imaging was performed. COMPARISON: No exams were available for comparison FINDINGS: Four views: No evidence of acute fracture nor carpal dislocation. No significant ulnar variance. Small osteophy tic density just beyond the ulnar styloid does not have the appearance of a typical fracture fragment . Scaphoid and scapholunate distance normal. IMPRESSION: As above but no acute osseous findings. DATA REPOSITORY: RADIATION DOSE DELIVERED:
--- NOTE | 2022-12-09 12:00 | DI.RAD_ITS ---
Exam(s) XR FOOT RT COMPLETE EXAM: XR FOOT RT COMPLETE CLINICAL HISTORY: fall lateral foot pain. TECHNIQUE: 2D digital imaging was performed. COMPARISON: No exams were available for comparison FINDINGS: 3 views There is a thin avulsion sliver off the lateral aspect of the cuboid bone. Correlation with site of tenderness recommended. Otherwise there are no other fractures. Calcification noted in the plantar fascia. IMPRESSION: Thin osseous density medially adjacent to the cortex on the lateral aspect of the cuboid bone. Suspe ct avulsion injury. Correlation with site of tenderness on the lateral aspect of the foot is recomme nded. DATA REPOSITORY: RADIATION DOSE DELIVERED:
--- NOTE | 2022-12-09 12:00 | DI.RAD_ITS ---
Exam(s) XR ANKLE RT COMPLETE EXAM: XR ANKLE RT COMPLETE CLINICAL HISTORY: fall trauma. TECHNIQUE: 2D digital imaging was performed. COMPARISON: No exams were available for comparison FINDINGS: 3 views No evidence of acute fracture nor widening of the ankle mortise. Talar dome unremarkable. No soft t issue swelling. No degenerative changes. Incidentally noted is calcification in the plantar fascia. Bone density normal. No osseous lesions. IMPRESSION: No acute fracture evident. DATA REPOSITORY: RADIATION DOSE DELIVERED:
[2022-12-09] MEDS: Acetaminophen 500 MG TAB 1000 MG PO (12:11)
--- NOTE | 2022-12-09 12:29 | DI.CT_ITS ---
Exam(s) CT HEAD CERVICAL SPINE WO EXAM: CT HEAD CERVICAL SPINE WO CLINICAL HISTORY: fall neck pain. TECHNIQUE: Imaging Protocol: Axial computed tomography images with coronal and sagittal reformatted images were created and reviewed COMPARISON: MR MR BRAIN WO from 09/25/2021 FINDINGS: BRAIN: There are no skull fractures nor fluid in the visualized paranasal sinuses. There is no evidence of intracranial hemorrhage, mass effect, or shift of midline structures. There are no extra-axial fluid collections. The ventricles are not enlarged or shifted and there is no blo od within the ventricular system nor within the basal cisterns. CERVICAL SPINE: Posteriorly there is an osteophytic density posterior to the spinous process of C6. Possible little avulsion injury at this level but may not be acute. There does not appear to be an obvious defect in the parent bone. No significant disc space narrowing. Minimal facet joint degenerative changes. There is no significant facet joint malalignment. No significant osseous lesions evident. IMPRESSION: No acute intracranial findings on this noninfused CT scan of the brain. Calcific density seen posterior to the spinous process of C6, either representing an avulsion fractur e at this level or just calcification in the supraspinous ligament. Correlation with site of tendern ess is recommended. Called by myself to ER physician. RADIATION DOSE DELIVERED: 1,294.66mGy.cm Total DLP DATA REPOSITORY: All CT scans at this facility are submitted to the National Radiology Data Registry (NRDR) Dose Index Registry (DIR) with the [employer] ([employer]). RADIATION OPTIMIZATION: All CT scans at this facility use at least one of these dose optimization te chniques: automated exposure control; mA and/or kV adjustment per patient size (includes targeted exa ms where dose is matched to clinical indication); or iterative reconstruction.
--- NOTE | 2022-12-09 13:48 | W.ED.GENAD ---
Discharge Plan Disposition Patient Disposition: Home Discharge Details Clinical Impression: Avulsion fracture of bone, Right wrist sprain, Acute cervical myofascial strain Primary Care Provider: Susy Tinajero ED Provider: Ryland Way Home Meds and New Rx's Prescriptions: New ibuprofen [IBU] 600 mg tablet 600 mg PO QID PRN (Reason: pain) Qty: 20 0RF cyclobenzaprine 5 mg tablet 5 mg PO TID PRN (Reason: muscle spasm) Qty: 10 0RF Continued albuterol sulfate 90 mcg/actuation HFA aerosol inhaler 1 - 2 puff IH Q4H PRN (Reason: shortness of breath or wheezing) Qty: 1 3RF Rx Instructions: Dispense brand of albuterol inhaler covered by patient's insurance cyanocobalamin (vitamin B-12) 1,000 mcg capsule 1,000 mcg PO DAILY metformin 500 mg tablet extended release 24 hr 500 mg PO BID Rx Instructions: Administer once daily with the evening meal (DME) blood-glucose meter Misc See Rx Instructions .ROUTE .MEDSUPPLY Qty: 1 0RF Rx Instructions: As directed to check blood glucose daily. No insulin. Dispense covered brand. levalbuterol tartrate [Xopenex HFA] 45 mcg/actuation HFA aerosol inhaler 1 puff inhalation Q6H PRN Patient Comments: not taking budesonide-formoterol [Symbicort] 160-4.5 mcg/actuation HFA aerosol inhaler 1 inh inhalation ONCE Qty: 10.2 3RF (DME) Blood Glucose Test Strip See Rx Instructions .ROUTE .MEDSUPPLY Qty: 100 3RF Rx Instructions: As directed to check daily morning fasting blood glucose. No insulin. (DME) lancets Misc See Rx Instructions .ROUTE .MEDSUPPLY Qty: 100 3RF Rx Instructions: As directed to check blood glucose daily. No insulin. Dispense covered brand. lisinopril 10 mg tablet 10 mg PO DAILY Qty: 90 3RF levothyroxine 50 mcg tablet 50 mcg PO DAILY Qty: 90 3RF Rx Instructions: Administer in the morning on an empty stomach, at least 30-60 minutes before food. duloxetine 60 mg capsule,delayed release(DR/EC) 60 mg PO DAILY Qty: 90 3RF gabapentin 600 mg tablet 600 mg PO QHS Rx Instructions: 05/01/21--incr from 300mg qhs atorvastatin 40 mg tablet 40 mg PO DAILY Qty: 90 3RF bupropion HCl 150 mg tablet extended release 24 hr See Rx Instructions .ROUTE .COMPLEX Qty: 270 0RF Dose Instruction: TAKE THREE TABLETS BY MOUTH EVERY MORNING Rx Instructions: TAKE THREE TABLETS BY MOUTH EVERY MORNING ibuprofen [Advil] 200 mg tablet 600 mg PO Q6H PRN (Reason: pain) Qty: 60 2RF Rx Instructions: take w/ food Discharge Instructions Instructions: Cervical Strain (ED), Wrist Sprain (ED) Additional Instructions: Please take medications as prescribed and rest over the next couple days. You may perform weightbearing activities as tolerated. If you have any significant worsening of your symptoms please return to the emergency department for reassessment otherwise follow-up with orthopedics as discussed. Referrals: [facility] [Provider Group] (Please call the office tomorrow afternoon for arrangement of your follow-up appointment) Susy Tinajero [Primary Care Provider] - Discharge Data Discharge Date/Time-TO BE ENTERED AT DEPARTURE: 12/09/22 14:26 Medical Decision Making Patient presenting to the emergency department for chief complaint of mechanical fall with End over End fall down 18 stairs. Patient denies any loss of consciousness and states that she slipped on a floor that she had just cleaned. Patient states some mild neck discomfort mostly with rotation, right wrist and right foot/ankle pain. Patient denies chest pain, nausea vomiting, belly pain. Physical exam shows no midline tenderness to the C-spine but patient does have significant tenderness with rotation of the neck to the right. She does have some muscular tenderness also to palpation of the cervical muscles. Mainly on the right side. Patient has significant dorsal wrist tenderness with decreased range of motion of right wrist and anatomical snuffbox tenderness. Patient also has some tenderness to the lateral malleolus to the right ankle and lateral foot pain. Given mechanism of injury will perform CT head and neck along with plain film imaging of right wrist and ankle. Review of radiological imaging shows no acute findings with imaging of head and neck, wrist and ankle but did show an avulsion fracture of the cuboid bone of the foot. Patient placed in a walking boot, thumb spica wrist splint. Otherwise patient encouraged to continue use of [id number] pain medication. And patient placed upon follow-up with orthopedics for reassessment of foot and wrist given anatomical snuffbox tenderness with negative imaging. After discussion of diagnosis and plan of care patient has no further needs, questions, or concerns and states clear understanding to return to the emergency department for any worsening symptoms. This documentation was generated using Interview dictation system, please disregard any oddities of phrase or misspellings. Imaging Data Radiologic Study: Imaging: CT Scan Radiologist's impression: Exam(s) CT HEAD CERVICAL SPINE WO EXAM: CT HEAD CERVICAL SPINE WO CLINICAL HISTORY: fall neck pain. TECHNIQUE: Imaging Protocol: Axial computed tomography images with coronal and sagittal reformatted images were created and reviewed COMPARISON: MR MR BRAIN WO from 09/25/2021 FINDINGS: BRAIN: There are no skull fractures nor fluid in the visualized paranasal sinuses. There is no evidence of intracranial hemorrhage, mass effect, or shift of midline structures. There are no extra-axial fluid collections. The ventricles are not enlarged or shifted and there is no blood within the ventricular system nor within the basal cisterns. CERVICAL SPINE: Posteriorly there is an osteophytic density posterior to the spinous process of C6. Possible little avulsion injury at this level but may not be acute. There does not appear to be an obvious defect in the parent bone. No significant disc space narrowing. Minimal facet joint degenerative changes. There is no significant facet joint malalignment. No significant osseous lesions evident. IMPRESSION: No acute intracranial findings on this noninfused CT scan of the brain. Calcific density seen posterior to the spinous process of C6, either representing an avulsion fracture at this level or just calcification in the supraspinous ligament. Correlation with site of tenderness is recommended. Radiologic Study #2: Imaging: X-Ray Radiologist's impression: Exam(s) XR WRIST RT COMPL NAVICULAR EXAM: XR WRIST RT COMPL NAVICULAR CLINICAL HISTORY: fall/ trauma. TECHNIQUE: 2D digital imaging was performed. COMPARISON: No exams were available for comparison FINDINGS: Four views: No evidence of acute fracture nor carpal dislocation. No significant ulnar variance. Small osteophytic density just beyond the ulnar styloid does not have the appearance of a typical fracture fragment. Scaphoid and scapholunate distance normal. IMPRESSION: As above but no acute osseous findings. Radiologic Study #3: Imaging: X-Ray Radiologist's impression: Exam(s) XR ANKLE RT COMPLETE EXAM: XR ANKLE RT COMPLETE CLINICAL HISTORY: fall trauma. TECHNIQUE: 2D digital imaging was performed. COMPARISON: No exams were available for comparison FINDINGS: 3 views No evidence of acute fracture nor widening of the ankle mortise. Talar dome unremarkable. No soft tissue swelling. No degenerative changes. Incidentally noted is calcification in the plantar fascia. Bone density normal. No osseous lesions. IMPRESSION: No acute fracture evident. Radiologic Study #4: Imaging: X-Ray Radiologist's impression: Exam(s) XR FOOT RT COMPLETE EXAM: XR FOOT RT COMPLETE CLINICAL HISTORY: fall lateral foot pain. TECHNIQUE: 2D digital imaging was performed. COMPARISON: No exams were available for comparison FINDINGS: 3 views There is a thin avulsion sliver off the lateral aspect of the cuboid bone. Correlation with site of tenderness recommended. Otherwise there are no other fractures. Calcification noted in the plantar fascia. IMPRESSION: Thin osseous density medially adjacent to the cortex on the lateral aspect of the cuboid bone. Suspect avulsion injury. Correlation with site of tenderness on the lateral aspect of the foot is recommended. HPI General Mode of arrival: wheelchair. Date/Time Provider Initiated Documentation: 12/09/22 11:32. Limitations to Documentation: no limitations. Information obtained by: patient, family and RN notes reviewed. History of Present Illness 57 year old F presents to the emergency department with the chief complaint of Fall downstairs, described as moderate, with intensity rated at 7. Quality is described as aching, and is localized to the neck, upper extremity and lower extremity. Patient started experiencing this hour(s) (2) and it has been constant. No relieving factors improve symptom(s), No exacerbating factors reported . Patient notes no other symptoms.. Patient did receive the following treatments prior to arrival, none Related Data Home Medications Medication Instructions Recorded Confirmed blood-glucose meter #1 ea 05/27/19 12/09/22 albuterol sulfate 90 mcg/actuation 1 - 2 puff inhalation Q4H PRN 11/25/19 12/09/22 aerosol inhaler shortness of breath or wheezing #1 device ibuprofen 200 mg tablet (Advil) 600 mg PO Q6H PRN pain #60 tabs 02/24/20 12/09/22 blood sugar diagnostic (Blood #100 ea 05/10/20 12/09/22 Glucose Test strips) lancets #100 ea 05/10/20 12/09/22 levothyroxine 50 mcg tablet 50 mcg PO DAILY #90 tab-caps 11/01/20 12/09/22 lisinopril 10 mg tablet 10 mg PO DAILY #90 tab-caps 11/01/20 12/09/22 duloxetine 60 mg capsule,delayed 60 mg PO DAILY #90 tab-caps 03/13/21 12/09/22 release cyanocobalamin (vitamin B-12) 1,000 mcg PO DAILY 03/14/21 12/09/22 1,000 mcg capsule gabapentin 600 mg tablet 600 mg PO QHS 05/01/21 12/09/22 atorvastatin 40 mg tablet 40 mg PO DAILY #90 tab-caps 11/21/21 12/09/22 bupropion HCl 150 mg 24 hr tablet, See Rx Instructions .Route 02/26/22 12/09/22 extended release .COMPLEX #270 tabs metformin 500 mg tablet,extended 500 mg PO BID 09/23/22 12/09/22 release 24 hr budesonide-formoterol HFA 160 1 inh inhalation ONCE #10.2 grams 10/14/22 12/09/22 mcg-4.5 mcg/actuation aerosol inhaler (Symbicort) levalbuterol tartrate 45 1 puff inhalation Q6H PRN 10/14/22 10/14/22 mcg/actuation aerosol inhaler (Xopenex HFA) cyclobenzaprine 5 mg tablet 5 mg PO TID PRN muscle spasm #10 12/09/22 tabs ibuprofen 600 mg tablet (IBU) 600 mg PO QID PRN pain #20 tabs 12/09/22 Previous Rx's Medication Instructions Recorded blood-glucose meter #1 ea 05/27/19 albuterol sulfate 90 mcg/actuation 1 - 2 puff inhalation Q4H PRN 11/25/19 aerosol inhaler shortness of breath or wheezing #1 device ibuprofen 200 mg tablet (Advil) 600 mg PO Q6H PRN pain #60 tabs 02/24/20 blood sugar diagnostic (Blood #100 ea 05/10/20 Glucose Test strips) lancets #100 ea 05/10/20 levothyroxine 50 mcg tablet 50 mcg PO DAILY #90 tab-caps 11/01/20 lisinopril 10 mg tablet 10 mg PO DAILY #90 tab-caps 11/01/20 duloxetine 60 mg capsule,delayed 60 mg PO DAILY #90 tab-caps 03/13/21 release atorvastatin 40 mg tablet 40 mg PO DAILY #90 tab-caps 11/21/21 bupropion HCl 150 mg 24 hr tablet, See Rx Instructions .Route 02/26/22 extended release .COMPLEX #270 tabs budesonide-formoterol HFA 160 1 inh inhalation ONCE #10.2 grams 10/14/22 mcg-4.5 mcg/actuation aerosol inhaler (Symbicort) cyclobenzaprine 5 mg tablet 5 mg PO TID PRN muscle spasm #10 12/09/22 tabs ibuprofen 600 mg tablet (IBU) 600 mg PO QID PRN pain #20 tabs 12/09/22 Allergies Allergy/AdvReac Type Severity Reaction Status Date / Time amoxicillin Allergy Intermediate Hives Verified 12/09/22 11:16 venlafaxine AdvReac Unknown nausea Verified 12/09/22 11:16 09/12/09 General Stated Complaint: Fall/Non TraumaCriteria HONG: 3 Review of Systems Constitutional Constitutional: Reports headache(s) and Denies weakness Eyes Eyes: Denies change in vision ENT Ears, Nose, Mouth, and Throat: Reports headache(s) and Denies epistaxis Cardiovascular Cardiovascular: Denies chest pain, Denies syncope and Denies dyspnea Respiratory Respiratory: Denies dyspnea Gastrointestinal Gastrointestinal: Denies abdominal pain, Denies nausea and Denies vomiting Genitourinary Genitourinary: Denies hematuria Musculoskeletal Musculoskeletal: Reports as per HPI, Reports myalgias, Reports arthralgias, Denies numbness and Denies tingling Integumentary/Breasts Skin/Breast: Denies wounds Neurologic Neurologic: Denies syncope, Reports headache(s), Denies localized weakness, Denies numbness, Denies tingling and Denies weakness PFSH All Active Problems (Updated 12/09/22 @ 13:[address] NP) Avulsion fracture of bone (Acute) Right wrist sprain (Acute) Acute cervical myofascial strain (Acute) Nicotine dependence with current use (Acute) Excessive daytime sleepiness (Acute) Onychomycosis (Acute) Restless legs syndrome (Acute) Hearing problem (Acute) Rash, skin (Acute) Elevated serum creatinine (Acute) Vitamin D deficiency (Acute) Musculoskeletal pain (Acute) Ear pain (Acute) Exertional shortness of breath (Acute) Asthma (Chronic 02/08/15) Last PFT: 02/19/15 with normal FEV1/FVC of 98% predicted (pre-bronchodilator) & no bronchodilator response Essential hypertension (Chronic 08/17/17) Fatigue (Chronic 02/08/15) Gastroesophageal reflux disease (Chronic 06/10/17) Hyperlipidemia, unspecified (Chronic 02/08/15) 11/2019: increased to high intensity statin due to LDL not at goal Hypothyroidism, unspecified (Chronic 06/02/17) Major depressive disorder, recurrent (Chronic 06/03/17) Menorrhagia with regular cycle (Chronic 11/08/15) Periodic limb movement disorder (Chronic 09/07/15) 02/02/21 sleep study ([facility]) Substance use disorder (Chronic) EtOH, cocaine, opiates; [facility] for MAT with methadone Tobacco use disorder (Chronic 02/08/15) Upper airway resistance syndrome (Chronic 02/08/15) Symptoms include snoring & excessive daytime sleepiness. 02/02/21 Sleep Study done [facility] Leiomyoma of uterus, unspecified (Chronic) PVCs (premature ventricular contractions) (Chronic) 07/2018 ZioPatch Hot flashes (Chronic) 12/2018: gabapentin started which helps Type 2 diabetes mellitus, without long-term current use of insulin (Acute) Memory impairment (Chronic) Mild cognitive impairment (Acute) Medical History (Updated 12/09/22 @ 13:[address] NP) Acute appendicitis Basal cell carcinoma (BCC) in situ of skin Hx of substance abuse IFG (impaired fasting glucose) (02/16/18) Surgical History Ligation of fallopian tube (08/25/12) Status post appendectomy (~03/01/20) Family History Mother Breast cancer Father Diabetes Mental disorder anxiety Grandfather , stomach CA Neoplasm Grandmother Diabetes Alcohol abuse Heart disease Sister , Lung CA Neoplasm Throat CA (smoker) Lung cancer Social History Smoking/Tobacco Use Status: Current every day Tobacco Type: cigarettes Smoking packs per day: 0.75 Smoking cigarettes per day: 15.0 Years smoked: 40 Smoking pack-years: 30.00 Quit status: considering quitting Smoking risk assessment performed?: Yes Alcohol Intake: former Drug use: Current Sobriety Substance use type: does not use Caregiver/Support person: No Household members: significant other Housing: apartment Number of Children: 2 Communication Needs: None current occupation: House cleaning Pets and animals: No Sexually active: Yes Current gender identity: female What type of physical activity do you participate in: none Seatbelt use: always Helmet use: Yes Do you feel safe at home: Yes Do you feel safe in your relationship?: Yes Exam Const General: cooperative, no acute distress and not ill appearing Orientation: alert, awake and oriented x3 HENMT Mouth: moist mucous membranes Resp Effort & Inspection: normal respiratory effort, able to speak in complete sentences and no respiratory distress Auscultation: clear to auscultation bilaterally Cardio Rate: regular rate Rhythm: regular rhythm Heart Sounds: S1 normal and S2 normal Back/Spine/Pelvis Cervical Spine: normal cervical lordosis, cervical muscular tenderness, pain with cervical ROM, No cervical spasm, No cervical spinal tenderness and cervical ROM abnormal Thoracic/Lumbar Spine: thoracic and lumbar spine normal to inspection, No thoracic spinal tenderness and No lumbar spinal tenderness Skin General skin exam: no rashes or lesions noted Neuro General: patient alert, patient awake, patient oriented x3, moves all extremities and no focal motor deficits Sensory Exam: no sensory deficits noted Extrem General: normal exam except as noted Right upper extremity: wrist Details: tenderness Location: of the distal radius and of the anatomic snuffbox, swelling Location: of the dorsal wrist, abnormal ROM Details: pain with active ROM during and normal vascular exam; no lacerations, no ecchymosis and no deformity Right lower extremity: ankle Details: tenderness Location: of the lateral malleolus and abnormal ROM Details: pain with active ROM and pain with passive ROM; no abrasions, no lacerations and no ecchymosis Course Vital Signs Vital signs: Vital Signs Temperature 36.7 C 12/09/22 11:13 Pulse 105 H 12/09/22 11:13 Respiratory Rate 18 12/09/22 11:13 Pulse Oximetry 97 12/09/22 11:13 Temperature 36.7 C 12/09/22 11:13 Temperature Source Temporal Artery Scan 12/09/22 11:13 Pulse 105 H 12/09/22 11:13 Respiratory Rate 18 12/09/22 11:13 Respiratory Effort Normal, Non-Labored 12/09/22 11:15 Blood Pressure 140/82 12/09/22 11:15 Pulse Oximetry 97 12/09/22 11:13 Oxygen Delivery Method Room Air 12/09/22 11:13 Oxygen Flow Rate 0 12/09/22 11:13
[2022-12-09 14:25] VITALS: BP 148/76; PULSE 71; RESP 18; O2SAT 98
== END 2022-12-09 14:26 | disposition home or self-care (01) ==
PROVIDERS: Emergency Provider Nurse Practitioner Family; PCP Nurse Practitioner Family
DX: S92.211A Displaced fracture of cuboid bone of right foot, initial encounter for closed fracture (principal); S63.501A Unspecified sprain of right wrist, initial encounter; S29.012A Strain of muscle and tendon of back wall of thorax, initial encounter; W10.9XXA Fall (on) (from) unspecified stairs and steps, initial encounter
CPT/HCPCS: 29130; 29515; 96374; 99284; 70450; 72125; 73110; 73610; 73630

== ENCOUNTER 2022-12-17 09:27 | Outpatient (CLI) | payer MEDICAID, SELFPAY ==
--- NOTE | 2022-12-17 09:15 | DI.RAD_ITS ---
Exam(s) XR WRIST RT COMPL NAVICULAR EXAM: XR WRIST RT COMPL NAVICULAR CLINICAL HISTORY: s/p fall. TECHNIQUE: 2D digital imaging was performed. Three views. COMPARISON: CR XR WRIST RT COMPL NAVICULAR from 12/09/2022 FINDINGS: BONES: No acute fracture is present. No bony destructive lesion is seen. The navicular appears inta ct. JOINTS: The carpal bones are normally aligned. Mild degenerative changes. SOFT TISSUE: Normal. IMPRESSION: Acute abnormality. DATA REPOSITORY: RADIATION DOSE DELIVERED:
--- NOTE | 2022-12-17 09:15 | DI.RAD_ITS ---
Exam(s) XR FOOT RT COMPLETE EXAM: XR FOOT RT COMPLETE CLINICAL HISTORY: f/u fx. TECHNIQUE: 2D digital imaging was performed. Three views. COMPARISON: CR LEFT ANKLE COMPLETE from 01/18/2013 CR XR ANKLE RT COMPLETE from 12/09/2022 CR XR FOOT RT COMPLETE from 12/09/2022 FINDINGS: BONES: Previously noted tiny sliver of bone adjacent to the cuboid seen on the lateral view is not vi sualized current lead due to projection. No additional fractures seen. Heel spurs and mild degenera tive changes.. No bony destructive lesion is seen. JOINTS: No dislocation present. SOFT TISSUE: Normal. IMPRESSION: Previously questioned fracture fragment off the lateral aspect of the cuboid is not demonstrated on t he current exam likely secondary to projection. DATA REPOSITORY: RADIATION DOSE DELIVERED:
== END 2022-12-17 09:28 | disposition home or self-care (01) ==
LOC: DIORS 09:27
PROVIDERS: PCP Nurse Practitioner Family; Referring Provider Nurse Practitioner Family; Visit Provider Physician Assistant
DX: S92.211A Displaced fracture of cuboid bone of right foot, initial encounter for closed fracture; M25.531 Pain in right wrist; S63.591A Other specified sprain of right wrist, initial encounter
CPT/HCPCS: 73110; 73630

== ENCOUNTER → 2023-03-16 01:28 | Outpatient (CLI) | payer MEDICAID, SELFPAY ==
--- NOTE | 2023-03-16 07:30 | DI.CTLCSR_ITS ---
Exam(s) CT CHEST LUNG CANCER SCREEN EXAM: CT CHEST LUNG CANCER SCREEN CLINICAL HISTORY: Screening for lung cancer,current smoker, f17.200 TECHNIQUE: Imaging Protocol: Axial computed tomography images with coronal and sagittal reformatted images were created and reviewed. Low dose screening protocol. COMPARISON: CT CT CHEST LUNG CANCER SCREEN from 03/25/2022 FINDINGS: Tracheobronchial tree: No bronchiectasis or mucus plugging.. Mediastinum and Tierney: No dominant adenopathy or fluid collection. Pulmonary parenchyma: No consolidation or dominant measurable mass. Minimal emphysematous changes. M ild scarring versus atelectasis medial lingula and medial right middle lobe. Lung Nodules: None. Pleura: No effusion. No pneumothorax. Heart: The heart is not dilated. No coronary artery calcifications are seen. Aorta: Thoracic aorta non-dilated. Minimal calcification. Upper abdomen: Unremarkable. Bones: Unremarkable for age. Soft Tissues: Unremarkable. IMPRESSION: No suspicious pulmonary nodules. Lung RADS Cat 1 - Negative: No nodules and definitely benign nodules Lung-RADS 1.0 CATEGORIES: Category 0 - Prior chest CT exam(s) being located for comparison. Category 1 - Annual screening in 12 months. No nodules or definitely benign nodules. Category 2 - Annual screening in 12 months. Benign appearance. Nodules with low likelihood of becomin g active cancer. Category 3 - 6-month follow-up. Probably benign. Short-term follow-up suggested. Nodules with low lik elihood of becoming active cancer. Category 4A - 3-month follow-up and CT/PET if >8 mm in size. Suspicious finding. Findings which requi re additional testing. Category 4B - Findings which require additional testing and tissue sampling. Category 4X - Category 3 or 4 nodules with additional features or imaging findings that increases the suspicion of malignancy. Modifier S- Potentially clinically significant findings (non lung cancer) RADIATION DOSE DELIVERED: 75.71mGy.cm Total DLP DATA REPOSITORY: All CT scans at this facility are submitted to the National Radiology Data Registry (NRDR) Dose Index Registry (DIR) with the [employer] (ACR). RADIATION OPTIMIZATION: All CT scans at this facility use at least one of these dose optimization te chniques: automated exposure control; mA and/or kV adjustment per patient size (includes targeted exa ms where dose is matched to clinical indication); or iterative reconstruction.
== END ==
PROVIDERS: PCP Nurse Practitioner Family; Visit Provider Student in an Organized Health Care Education/Training Program
DX: F17.210 Nicotine dependence, cigarettes, uncomplicated (principal); Z12.2 Encounter for screening for malignant neoplasm of respiratory organs
CPT/HCPCS: 71271

== ENCOUNTER 2023-06-22 15:33 | Outpatient (REF) | payer MEDICAID, SELFPAY ==
--- NOTE | 2023-06-22 15:00 | PAPFT_PTH ---
PATIENT: Zoë Garcia LOC: [facility]#:[id number] AGE/SX: 58/F ROOM: RE06/22/[address]: Susy Tinajero : 1965 BED: DIS: 06/22/2023 SPEC #: [id number] RECD: 06/22/23 18:41 STATUS: IKE REQ #: [id number] SAMARA: 06/22/23 15:[address]: Susy Tinajero DEPT: [facility] Cytology RECD BY: Deyanira Prabhakar Tissues: 1 - CX/ENDOCX FOR PAP SMEARS Procedures: PAP THIN PREP/UVM Screening HPV DNA PROBE Comments: [id number] (CHLAMYDIA/GC)
[2023-06-22 19:25] LABS: Abs Immature Grans 0.04 10^3/uL (0.0-0.06); Absolute Basophil Count 0.09 10^3/uL (0.0-0.2); Absolute Eosinophil Count 0.24 10^3/uL (0.0-0.7); Absolute Lymphocyte Count 2.68 10^3/uL (1.2-3.4); Absolute Monocyte Count 0.58 10^3/uL (0.1-0.8); Absolute Neutrophil Count 6.88 10^3/uL (1.2-6.7); Basophils % 0.9; Eosinophils % 2.3; HCT 42.5 % (36.0-46.0); HGB 14.1 g/dL (11.2-15.7); Immature Grans % 0.4; Lymphocytes % 25.5; MCH 29.7 pg (27.0-33.0); MCHC 33.2 % (32.0-36.0); MCV 90 fL (80-95); MPV 8.6 fL (8.0-11.0); Monocytes % 5.5; Neutrophils % 65.4; Platelet Count 329 10^3/uL (130-400); RBC 4.74 10^6/uL (3.93-5.22); RDW 12.2 % (11.7-14.6); RDW-SD 40.3 fL; WBC 10.51 10^3/uL (4.4-10.8)
[2023-06-22 19:44] LABS: ALT 28 U/L (14-59); AST 17 U/L (15-37); Albumin 3.7 g/dL (3.4-5.0); Alkaline Phosphatase 96 U/L (46-116); Anion Gap 8.2 mmol/L (3-11); BUN 14 mg/dL (7-18); Bilirubin, Total 0.2 mg/dL (0.2-1.0); CO2 27.8 mmol/L (21.0-32.0); CREATININE 1.4 mg/dL (0.55-1.02); Calcium 9.5 mg/dL (8.5-10.1); Chloride 105 mmol/L (98-107); Estimated GFR 43.61 (mL/min/1.73m2); Glucose 134 mg/dL (74-106); Potassium 3.5 mmol/L (3.5-5.1); Sodium 141 mmol/L (136-145); TSH 1.28 uIU/mL (0.36-3.74); Total Protein 7.5 g/dL (6.4-8.2)
[2023-06-23 14:29] LABS: Chlamydia Result Negative (Negative); GC Result Negative (Negative)
== END 2023-06-22 15:34 | disposition home or self-care (01) ==
LOC: NCHCN 15:33
PROVIDERS: PCP Nurse Practitioner Family; Visit Provider Nurse Practitioner Family
DX: Z01.419 Encounter for gynecological examination (general) (routine) without abnormal findings (principal)
CPT/HCPCS: 80053; 82306; 87491; 87591; 88142; 83036; 84443; 85025; 87624